=== PATIENT | female | born 1950 | race Caucasian/White ===

== ENCOUNTER 2018-03-07 20:29 | Emergency (ER) | payer MEDICARE, OTHER ==
[2018-03-07 20:56] VITALS: TEMP 97.4
[2018-03-07] MEDS ORDERED: SODIUM CHLORIDE 0.9% 1,000 ML IV STA (21:50)
[2018-03-07] MEDS ORDERED: MORPHINE SULFATE 4 MG/0.8 ML SYRINGE (INJ) IVP STA (21:53)
--- NOTE | 2018-03-07 21:56 | ED ---
Nausea/Vomiting/Diarrhea HPI - General Chief complaint: Nausea/Vomiting/Diarrhea Stated complaint: Blood in stool Time Seen by Provider: 03/07/18 21:36 Source: patient, RN notes reviewed Mode of arrival: wheelchair Limitations: no limitations - History of Present Illness Initial comments: This is a 67-year-old female who presents to the emergency department with chief complaint of bloody diarrhea. Patient states that earlier this afternoon she developed diarrhea. She states that she noticed bright red blood in the toilet and on the toilet paper. She states that soon after she developed abdominal pain below her bellybutton. She describes it as intermittent and burning and occurs for minutes at a time. Patient denies any nausea or vomiting. Denies fevers or chills. Denies shortness of breath or chest pain, flank pain, dysuria, hematuria, increased frequency of urination. Patient denies any previous abdominal surgeries. She denies any significant past medical history except for glaucoma. - Related Data Previous Rx's Medication Instructions Recorded Ciprofloxacin HCl [Cipro] 500 mg PO Q12HR #20 tablet 03/07/18 Allergies Allergy/AdvReac Type Severity Reaction Status Date / Time No Known Allergies Allergy Verified 03/07/18 20:56 Review of Systems ROS Statement: Those systems with pertinent positive or pertinent negative responses have been documented in the HPI. ROS Other: All systems not noted in ROS Statement are negative. 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 Lying comfortably on ED stretcher. and daughter are at bedside. HEENT: Head atraumatic, normocephalic. Pupils are equal, round and reactive to light. Extraocular movements intact. Oropharynx moist without erythema or exudate. Neck: Supple. Normal ROM. Cardiovascular: Regular rate and rhythm. No murmurs, rubs or gallops. Chest symmetrical. Respiratory: Lungs clear to auscultation bilaterally. No wheezes, rales or rhonchi. Normal respiratory effort with no use of accessory muscles. Abdomen: Soft, non-tender, non-distended. No rigidity, rebound or guarding. Normal bowel sounds in all 4 quadrants. No CVA tenderness bilaterally. Musculoskeletal: Normal ROM, no tenderness bilateral upper and lower extremities. Skin: [place], warm and dry without rashes or lesions. Neurological: Alert and oriented x3. CN II-XII grossly intact. Speech is fluent and answers are appropriate. No focal neuro deficits. Psychiatric: Normal mood and affect. No overt signs of depression or anxiety noted. Limitations: no limitations (Initial vital signs: temperature 97.4, pulse 64, respirations 18, blood pressure 138/63, 99% on room air) Rectal exam: Present: normal inspection, normal rectal tone. Absent: hemorrhoids, mass, tenderness Course Vital Signs 03/07/18 20:53 Temperature 97.4 F L Pulse Rate 64 Respiratory 18 Rate Blood Pressure 138/63 O2 Sat by Pulse 99 Oximetry Medical Decision Making - Medical Decision Making This is a 67-year-old female who presented to the emergency department for evaluation of bloody diarrhea that started today. On physical examination, abdomen is soft and non-tender. Vital signs are stable and patient does not appear to be in any acute distress. Stool occult was positive. UA revealed small blood and red blood cells but was otherwise unremarkable. CBC revealed a mildly elevated white count of 11.8 with a left shift of 10.5. CMP was completely unremarkable. Patient given pain medication and fluids in the emergency department and she states that her abdominal pain has resolved. This case was discussed with attending physician, Dr. Ocasio. Recommended obtaining stool cultures and ova and parasite. Patient will be started on Cipro to treat for bacterial causes of bloody diarrhea. Patient's vital signs are stable and she is in no acute distress. She will be discharged home at this time. She is in agreement with plan and voices understanding. All questions were answered. - Lab Data Result diagrams: 03/07/18 22:27 03/07/18 22:27 Lab Results 03/07/18 03/07/18 03/07/18 Range/Units 22:10 22:10 22:27 WBC (3.8-10.6) k/uL RBC (3.80-5.40) m/uL Hgb (11.4-16.0) gm/dL Hct (34.0-46.0) % MCV (80.0-100.0) fL MCH (25.0-35.0) pg MCHC (31.0-37.0) g/dL RDW (11.5-15.5) % Plt Count (150-450) k/uL Neutrophils % % Lymphocytes % % Monocytes % % Eosinophils % % Basophils % % Neutrophils # (1.3-7.7) k/uL Lymphocytes # (1.0-4.8) k/uL Monocytes # (0-1.0) k/uL Eosinophils # (0-0.7) k/uL Basophils # (0-0.2) k/uL Sodium 141 (137-145) mmol/L Potassium 3.9 (3.5-5.1) mmol/L Chloride 105 (98-107) mmol/L Carbon Dioxide 23 (22-30) mmol/L Anion Gap 13 mmol/L BUN 15 (7-17) mg/dL Creatinine 0.70 (0.52-1.04) mg/dL Est GFR (CKD-EPI)AfAm >90 (>60 ml/min/1.73 sqM) Est GFR (CKD-EPI)NonAf 89 (>60 ml/min/1.73 sqM) Glucose 135 H (74-99) mg/dL Calcium 9.4 (8.4-10.2) mg/dL Total Bilirubin 0.5 (0.2-1.3) mg/dL AST 22 (14-36) U/L ALT 22 (9-52) U/L Alkaline Phosphatase 74 (38-126) U/L Total Protein 6.4 (6.3-8.2) g/dL Albumin 4.2 (3.5-5.0) g/dL Amylase 77 (30-110) U/L Lipase 165 (23-300) U/L Urine Color Yellow Urine Appearance Clear (Clear) Urine pH 5.5 (5.0-8.0) Ur Specific [place] 1.021 (1.001-1.035) Urine Protein Trace H (Negative) Urine Glucose (UA) Negative (Negative) Urine Ketones 3+ H (Negative) Urine Blood Small H (Negative) Urine Nitrite Negative (Negative) Urine Bilirubin Negative (Negative) Urine Urobilinogen <2.0 (<2.0) mg/dL Ur Leukocyte Esterase Negative (Negative) Urine RBC 6 H (0-5) /hpf Urine WBC 3 (0-5) /hpf Ur Squamous Epith Cells <1 (0-4) /hpf Urine Mucus Rare H (None) /hpf Stool Occult Blood Positive H (Negative) 03/07/18 Range/Units 22:27 WBC 11.8 H (3.8-10.6) k/uL RBC 4.24 (3.80-5.40) m/uL Hgb 13.3 (11.4-16.0) gm/dL Hct 40.1 (34.0-46.0) % MCV 94.6 (80.0-100.0) fL MCH 31.4 (25.0-35.0) pg MCHC 33.2 (31.0-37.0) g/dL RDW 12.1 (11.5-15.5) % Plt Count 239 (150-450) k/uL Neutrophils % 89 % Lymphocytes % 6 % Monocytes % 3 % Eosinophils % 1 % Basophils % 0 % Neutrophils # 10.5 H (1.3-7.7) k/uL Lymphocytes # 0.7 L (1.0-4.8) k/uL Monocytes # 0.4 (0-1.0) k/uL Eosinophils # 0.1 (0-0.7) k/uL Basophils # 0.0 (0-0.2) k/uL Sodium (137-145) mmol/L Potassium (3.5-5.1) mmol/L Chloride (98-107) mmol/L Carbon Dioxide (22-30) mmol/L Anion Gap mmol/L BUN (7-17) mg/dL Creatinine (0.52-1.04) mg/dL Est GFR (CKD-EPI)AfAm (>60 ml/min/1.73 sqM) Est GFR (CKD-EPI)NonAf (>60 ml/min/1.73 sqM) Glucose (74-99) mg/dL Calcium (8.4-10.2) mg/dL Total Bilirubin (0.2-1.3) mg/dL AST (14-36) U/L ALT (9-52) U/L Alkaline Phosphatase (38-126) U/L Total Protein (6.3-8.2) g/dL Albumin (3.5-5.0) g/dL Amylase (30-110) U/L Lipase (23-300) U/L Urine Color Urine Appearance (Clear) Urine pH (5.0-8.0) Ur Specific [place] (1.001-1.035) Urine Protein (Negative) Urine Glucose (UA) (Negative) Urine Ketones (Negative) Urine Blood (Negative) Urine Nitrite (Negative) Urine Bilirubin (Negative) Urine Urobilinogen (<2.0) mg/dL Ur Leukocyte Esterase (Negative) Urine RBC (0-5) /hpf Urine WBC (0-5) /hpf Ur Squamous Epith Cells (0-4) /hpf Urine Mucus (None) /hpf Stool Occult Blood (Negative) Disposition Clinical Impression: Bloody diarrhea Disposition: HOME SELF-CARE Condition: Good Instructions: Acute Diarrhea (ED) Additional Instructions: Please take medications as prescribed. Please follow up with primary care provider within 1-2 days. Return to emergency department if symptoms should worsen or any concerns arise. Prescriptions: Ciprofloxacin HCl [Cipro] 500 mg PO Q12HR #20 tablet Is patient prescribed a controlled substance at d/c from ED?: No Referrals: Marielle Arredondo MD [Primary Care Provider] - 1-2 days Time of Disposition: 23:10
[2018-03-07 22:22] LABS: Appearance,Urine Clear (Clear); Bilirubin,Urine Negative (Negative); Blood,Urine Small (Negative); Color,Urine Yellow; Glucose,Urine (UA) Negative (Negative); Ketones,Urine 3+ (Negative); Leukocyte Esterase,Urine Negative (Negative); Mucus,Urine Rare /hpf; Nitrite,Urine Negative (Negative); PH, Urine 5.5 (5.0-8.0); Protein,Urine Trace (Negative); RBC,Urine 6 /hpf (0-5); Specific Gravity,Urine 1.021 (1.001-1.035); Squamous Epithelial Cell,Urine <1 /hpf (0-4); Urobilinogen,Urine <2.0 mg/dL (<2.0); WBC,Urine 3 /hpf (0-5)
[2018-03-07 22:41] LABS: Basophils % (A) 0 %; Eosinophils # (A) 0.1 k/uL (0-0.7); Eosinophils % (A) 1 %; HCT 40.1 % (34.0-46.0); HGB 13.3 gm/dL (11.4-16.0); Lymphocytes # (A) 0.7 k/uL (1.0-4.8); Lymphocytes % (A) 6 %; MCH 31.4 pg (25.0-35.0); MCHC 33.2 g/dL (31.0-37.0); MCV 94.6 fL (80.0-100.0); Mean Platelet Volume 7.2; Monocytes # (A) 0.4 k/uL (0-1.0); Monocytes % (A) 3 %; Neutrophils # (A) 10.5 k/uL (1.3-7.7); Neutrophils % (A) 89 %; Platelet Count 239 k/uL (150-450); RBC 4.24 m/uL (3.80-5.40); RDW 12.1 % (11.5-15.5); WBC 11.8 k/uL (3.8-10.6)
--- NOTE | 2018-03-07 22:50 | XR ---
History bloody diarrhea. Comparison none. Technique 2 views. FINDINGS: Bowel gas pattern is normal. There is no sign of intestinal obstruction or pneumoperitoneum. Fecal pa ttern is normal. There is a mild thoracolumbar levoscoliosis. There are no pathologic calcifications over the kidneys. Lung bases are clear. CONCLUSION: Nonacute abdomen.
[2018-03-07 22:54] LABS: ALT 22 U/L (9-52); AST 22 U/L (14-36); Albumin 4.2 g/dL (3.5-5.0); Alkaline Phosphatase 74 U/L (38-126); Amylase 77 U/L (30-110); Anion Gap 13 mmol/L; Blood Urea Nitrogen 15 mg/dL (7-17); Calcium 9.4 mg/dL (8.4-10.2); Carbon Dioxide 23 mmol/L (22-30); Chloride 105 mmol/L (98-107); Glucose 135 mg/dL (74-99); Lipase 165 U/L (23-300); Potassium 3.9 mmol/L (3.5-5.1); Sodium 141 mmol/L (137-145); Total Bilirubin 0.5 mg/dL (0.2-1.3); Total Protein 6.4 g/dL (6.3-8.2)
[2018-03-07] MEDS ORDERED: CIPROFLOXACIN HCL 500 MG TAB PO STA (23:07)
[2018-03-07 23:45] VITALS: BP 122/59; PULSE 67; RESP 16
== END 2018-03-07 23:51 | disposition home or self-care (01) ==
LOC: EC 20:29
DX: R19.7 Diarrhea, unspecified (principal)
CPT/HCPCS: 36415; 80053; 82150; 83690; 85025; 82272; 81001; 74018; 99284; 96374; 96361; J2270

== ENCOUNTER 2018-03-08 08:32 | Inpatient (IN) | payer MEDICARE, OTHER ==
[2018-03-08] MEDS ORDERED: RX INFO: IV CONTRAST WAS GIVEN 1 EACH MISC MISCELLANE PRN (09:09)
[2018-03-08] MEDS ORDERED: SODIUM CHLORIDE 0.9% 1,000 ML IV STA (09:09)
[2018-03-08 09:54] LABS: Basophils % (A) 0 %; Eosinophils # (A) 0.1 k/uL (0-0.7); Eosinophils % (A) 1 %; HGB 13.7 gm/dL (11.4-16.0); Lymphocytes # (A) 0.8 k/uL (1.0-4.8); Lymphocytes % (A) 7 %; MCH 32.1 pg (25.0-35.0); MCHC 33.5 g/dL (31.0-37.0); MCV 95.7 fL (80.0-100.0); Mean Platelet Volume 7.2; Monocytes # (A) 0.4 k/uL (0-1.0); Monocytes % (A) 3 %; Neutrophils % (A) 89 %; Platelet Count 277 k/uL (150-450); RBC 4.28 m/uL (3.80-5.40); WBC 12.4 k/uL (3.8-10.6)
[2018-03-08 10:00] LABS: Appearance,Urine Clear (Clear); Bilirubin,Urine Negative (Negative); Blood,Urine Moderate (Negative); Color,Urine Yellow; Glucose,Urine (UA) Negative (Negative); Ketones,Urine 1+ (Negative); Leukocyte Esterase,Urine Negative (Negative); Mucus,Urine Few /hpf; Nitrite,Urine Negative (Negative); PH, Urine 5.5 (5.0-8.0); Protein,Urine Trace (Negative); RBC,Urine 2 /hpf (0-5); Specific Gravity,Urine 1.019 (1.001-1.035); Squamous Epithelial Cell,Urine 2 /hpf (0-4); Urobilinogen,Urine <2.0 mg/dL (<2.0); WBC,Urine 3 /hpf (0-5)
[2018-03-08 10:02] LABS: Partial Thromboplastin Time 22.1 sec (22.0-30.0); Prothrombin Time 10.2 sec (9.0-12.0)
[2018-03-08 10:08] LABS: ALT 18 U/L (9-52); AST 21 U/L (14-36); Albumin 3.8 g/dL (3.5-5.0); Alkaline Phosphatase 57 U/L (38-126); Amylase 57 U/L (30-110); Anion Gap 12 mmol/L; Blood Urea Nitrogen 10 mg/dL (7-17); Carbon Dioxide 23 mmol/L (22-30); Chloride 105 mmol/L (98-107); Glucose 111 mg/dL (74-99); Lipase 76 U/L (23-300); Potassium 3.7 mmol/L (3.5-5.1); Sodium 140 mmol/L (137-145); Total Bilirubin 0.8 mg/dL (0.2-1.3)
[2018-03-08] MEDS ORDERED: ACETAMINOPHEN TAB 325 MG TAB PO STA (10:20)
--- NOTE | 2018-03-08 10:21 | ED ---
Abdominal Pain HPI - General Chief Complaint: Abdominal Pain Stated Complaint: Abd Pain, Headache Time Seen by Provider: 03/08/18 09:09 Source: patient, RN notes reviewed Mode of arrival: ambulatory Limitations: no limitations - History of Present Illness Initial Comments: This a 67-year-old female presents emergency Department with chief complaint of nausea vomiting diarrhea. She's been having bloody stool since yesterday was seen in the ER and sent home. Symptoms have worsened. She's had all bloody bowel movement with no stool. She does complain of left lower quadrant abdominal pain. Patient reportedly had one episode of hematemesis last night after being discharged from the ER. Patient denies chest pain, fever, chills, shortness breath. She's had no prior abdominal infections no prior colonoscopy. Patient denies any dysuria or hematuria. - Related Data Previous Rx's Medication Instructions Recorded Ciprofloxacin HCl [Cipro] 500 mg PO Q12HR #20 tablet 03/07/18 Allergies Allergy/AdvReac Type Severity Reaction Status Date / Time No Known Allergies Allergy Verified 03/08/18 10:59 Review of Systems ROS Statement: Those systems with pertinent positive or pertinent negative responses have been documented in the HPI. ROS Other: All systems not noted in ROS Statement are negative. 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 Absent: scleral icterus, conjunctival injection, periorbital swelling Respiratory exam: Present: normal lung sounds bilaterally. Absent: respiratory distress, wheezes, rales, rhonchi, stridor Cardiovascular Exam: Present: regular rate, normal rhythm, normal heart sounds. Absent: systolic murmur, diastolic murmur, rubs, gallop, clicks GI/Abdominal exam: Present: soft, tenderness (Mild tenderness to left lower quadrant), normal bowel sounds. Absent: distended, guarding, rebound, rigid Back exam: Absent: CVA tenderness (R), CVA tenderness (L) Skin exam: Present: warm, dry, intact, normal color. Absent: rash Course Vital Signs 03/08/18 08:35 Temperature 99.1 F Pulse Rate 75 Respiratory 18 Rate Blood Pressure 135/68 O2 Sat by Pulse 99 Oximetry Medical Decision Making - Medical Decision Making 67-year-old female presented for rectal bleeding. Patient has moderate colitis extending from the hepatic flexure to sigmoid. Patient will be admitted for GI bleed, colitis. Patient may hydrated IV, given antibiotics. - Lab Data Result diagrams: 03/08/18 09:35 03/08/18 09:35 Lab Results 03/08/18 03/08/18 03/08/18 Range/Units 08:38 09:35 09:35 WBC 12.4 H (3.8-10.6) k/uL RBC 4.28 (3.80-5.40) m/uL Hgb 13.7 (11.4-16.0) gm/dL Hct 41.0 (34.0-46.0) % MCV 95.7 (80.0-100.0) fL MCH 32.1 (25.0-35.0) pg MCHC 33.5 (31.0-37.0) g/dL RDW 12.0 (11.5-15.5) % Plt Count 277 (150-450) k/uL Neutrophils % 89 % Lymphocytes % 7 % Monocytes % 3 % Eosinophils % 1 % Basophils % 0 % Neutrophils # 11.0 H (1.3-7.7) k/uL Lymphocytes # 0.8 L (1.0-4.8) k/uL Monocytes # 0.4 (0-1.0) k/uL Eosinophils # 0.1 (0-0.7) k/uL Basophils # 0.0 (0-0.2) k/uL PT (9.0-12.0) sec INR (<1.2) APTT (22.0-30.0) sec Sodium 140 (137-145) mmol/L Potassium 3.7 (3.5-5.1) mmol/L Chloride 105 (98-107) mmol/L Carbon Dioxide 23 (22-30) mmol/L Anion Gap 12 mmol/L BUN 10 (7-17) mg/dL Creatinine 0.52 (0.52-1.04) mg/dL Est GFR (CKD-EPI)AfAm >90 (>60 ml/min/1.73 sqM) Est GFR (CKD-EPI)NonAf >90 (>60 ml/min/1.73 sqM) Glucose 111 H (74-99) mg/dL Plasma Lactic Acid Edu (0.7-2.0) mmol/L Calcium 9.0 (8.4-10.2) mg/dL Total Bilirubin 0.8 (0.2-1.3) mg/dL AST 21 (14-36) U/L ALT 18 (9-52) U/L Alkaline Phosphatase 57 (38-126) U/L Total Protein 6.0 L (6.3-8.2) g/dL Albumin 3.8 (3.5-5.0) g/dL Amylase 57 (30-110) U/L Lipase 76 (23-300) U/L Urine Color Urine Appearance (Clear) Urine pH (5.0-8.0) Ur Specific [place] (1.001-1.035) Urine Protein (Negative) Urine Glucose (UA) (Negative) Urine Ketones (Negative) Urine Blood (Negative) Urine Nitrite (Negative) Urine Bilirubin (Negative) Urine Urobilinogen (<2.0) mg/dL Ur Leukocyte Esterase (Negative) Urine RBC (0-5) /hpf Urine WBC (0-5) /hpf Ur Squamous Epith Cells (0-4) /hpf Urine Mucus (None) /hpf Stool Occult Blood Positive H (Negative) 03/08/18 03/08/18 03/08/18 Range/Units 09:35 09:35 09:35 WBC (3.8-10.6) k/uL RBC (3.80-5.40) m/uL Hgb (11.4-16.0) gm/dL Hct (34.0-46.0) % MCV (80.0-100.0) fL MCH (25.0-35.0) pg MCHC (31.0-37.0) g/dL RDW (11.5-15.5) % Plt Count (150-450) k/uL Neutrophils % % Lymphocytes % % Monocytes % % Eosinophils % % Basophils % % Neutrophils # (1.3-7.7) k/uL Lymphocytes # (1.0-4.8) k/uL Monocytes # (0-1.0) k/uL Eosinophils # (0-0.7) k/uL Basophils # (0-0.2) k/uL PT 10.2 (9.0-12.0) sec INR 1.0 (<1.2) APTT 22.1 (22.0-30.0) sec Sodium (137-145) mmol/L Potassium (3.5-5.1) mmol/L Chloride (98-107) mmol/L Carbon Dioxide (22-30) mmol/L Anion Gap mmol/L BUN (7-17) mg/dL Creatinine (0.52-1.04) mg/dL Est GFR (CKD-EPI)AfAm (>60 ml/min/1.73 sqM) Est GFR (CKD-EPI)NonAf (>60 ml/min/1.73 sqM) Glucose (74-99) mg/dL Plasma Lactic Acid Edu 1.1 (0.7-2.0) mmol/L Calcium (8.4-10.2) mg/dL Total Bilirubin (0.2-1.3) mg/dL AST (14-36) U/L ALT (9-52) U/L Alkaline Phosphatase (38-126) U/L Total Protein (6.3-8.2) g/dL Albumin (3.5-5.0) g/dL Amylase (30-110) U/L Lipase (23-300) U/L Urine Color Yellow Urine Appearance Clear (Clear) Urine pH 5.5 (5.0-8.0) Ur Specific [place] 1.019 (1.001-1.035) Urine Protein Trace H (Negative) Urine Glucose (UA) Negative (Negative) Urine Ketones 1+ H (Negative) Urine Blood Moderate H (Negative) Urine Nitrite Negative (Negative) Urine Bilirubin Negative (Negative) Urine Urobilinogen <2.0 (<2.0) mg/dL Ur Leukocyte Esterase Negative (Negative) Urine RBC 2 (0-5) /hpf Urine WBC 3 (0-5) /hpf Ur Squamous Epith Cells 2 (0-4) /hpf Urine Mucus Few H (None) /hpf Stool Occult Blood (Negative) Disposition Clinical Impression: Colitis, Lower GI bleed Disposition: ADMITTED IP TO THIS [facility] Condition: Stable Referrals: Marielle Arredondo MD [Primary Care Provider] - 1-2 days
--- NOTE | 2018-03-08 10:36 | CT ---
EXAMINATION TYPE: CT abdomen pelvis w con DATE OF EXAM: 03/08/2018 HISTORY: Mid abdominal pain with nausea, vomiting, and bloody diarrhea. CT DLP: 1042mGycm Automated Exposure Control for Dose Reduction was Utilized. CONTRAST: CT scan of the abdomen and pelvis is performed without oral but with IV Contrast, patient injected wi th 100 mL of Isovue 300. COMPARISON: None. FINDINGS: LUNG BASES: Dependent atelectasis is present in both bases. LIVER/GB: No significant abnormality is appreciated. PANCREAS: No significant abnormality is seen. SPLEEN: No significant abnormality is seen. ADRENALS: No significant abnormality is seen. KIDNEYS: No significant abnormality is seen. There is moderate amount of free fluid in pelvis near ax ial image 74 extending into right greater than left bilateral adnexa. BOWEL: A small hiatal hernia is seen. There is moderate wall thickening of the left colon from the sp lenic flexure through the proximal sigmoid colon. There is mild to moderate ill-defined fluid and fat stranding along the colon with small amount of left infracolic fluid seen. Some vasa engorgement is present. There is no pneumoperitoneum identified. No well-formed thick-walled fluid collection or ab scess is noted. UTERUS/ADNEXA: Slightly retroverted uterus is seen. LYMPH NODES: No greater than 1cm abdominal or pelvic lymph nodes are appreciated. OSSEOUS STRUCTURES: Slight scoliotic curvature is seen. Spine is straightened. There is moderate to severe axial joint space loss in both hips with mild acetabular spurring, there is prominent subchondral cyst in the right femoral head. OTHER: No significant additional abnormality is seen. IMPRESSION: 1. There is fairly moderate acute left-sided colitis.
[2018-03-08] MEDS ORDERED: NALOXONE 0.4 MG/ML 1 ML VIAL IV PRN (11:02)
[2018-03-08] MEDS ORDERED: metroNIDAZOLE-NS PMX 500 MG in SALINE 1 100ML.BAG IVPB STA (11:03)
[2018-03-08] MEDS ORDERED: LEVOFLOXACIN 750MG-D5W PMX 750 MG in DEXTROSE/WATER 1 150ML.BAG IVPB STA (11:03)
[2018-03-08] MEDS ORDERED: MORPHINE SULFATE 4 MG/0.8 ML SYRINGE (INJ) IVP ONE (11:11)
[2018-03-08] MEDS ORDERED: ONDANSETRON 4 MG/2 ML VIAL IVP STA (11:11)
[2018-03-08] MEDS: ACETAMINOPHEN TAB 325 MG TAB PO PRN ×2 (15:44→21:48)
[2018-03-08] MEDS: SODIUM CHLORIDE 0.9% 1,000 ML IV SCH (15:47)
[2018-03-08] MEDS: metroNIDAZOLE-NS PMX 500 MG in SALINE 1 100ML.BAG IVPB SCH (21:51)
[2018-03-09] MEDS: FRESHKOTE BOTH EYES SCH ×4 (01:24→20:44)
[2018-03-09] MEDS: SIMBRINZA BOTH EYES SCH ×3 (01:26→20:47)
[2018-03-09] MEDS: SODIUM CHLORIDE 0.9% 1,000 ML IV SCH ×5 (01:35→18:05)
[2018-03-09] MEDS: ACETAMINOPHEN TAB 325 MG TAB PO PRN ×2 (05:44→18:24)
[2018-03-09] MEDS: metroNIDAZOLE-NS PMX 500 MG in SALINE 1 100ML.BAG IVPB SCH ×3 (05:44→22:00)
[2018-03-09] MEDS: ONDANSETRON 4 MG/2 ML VIAL IVP PRN ×2 (05:44→18:03)
[2018-03-09 06:53] LABS: Basophils % (A) 0 %; Eosinophils # (A) 0.1 k/uL (0-0.7); Eosinophils % (A) 1 %; HCT 37.4 % (34.0-46.0); HGB 12.6 gm/dL (11.4-16.0); Lymphocytes # (A) 1.3 k/uL (1.0-4.8); Lymphocytes % (A) 11 %; MCH 32.4 pg (25.0-35.0); MCHC 33.7 g/dL (31.0-37.0); MCV 96.1 fL (80.0-100.0); Mean Platelet Volume 7.2; Monocytes # (A) 0.4 k/uL (0-1.0); Monocytes % (A) 3 %; Neutrophils # (A) 10.5 k/uL (1.3-7.7); Neutrophils % (A) 84 %; Platelet Count 260 k/uL (150-450); RDW 12.1 % (11.5-15.5); WBC 12.5 k/uL (3.8-10.6)
[2018-03-09] MEDS ORDERED: LUMIGAN BOTH EYES SCH (09:00)
--- NOTE | 2018-03-09 10:17 | P.CONS ---
History of Present Illness - Reason for Consult Consult date: 03/09/18 Abdominal pain GI bleed Requesting physician: Danny Lancaster - History of Present Illness 67-year-old female patient Dr. Arredondo with a past medical history glaucoma, vertigo. Patient developed severe crampy lower abdominal pain on Thursday afternoon followed by multiple episodes of bloody maroon colored bowel movements. No history of GI bleed. She was evaluated in the emergency room and discharged on Thursday with antibiotics. She had a large emesis in the car and noticed the next day but it appeared bloody in nature. She presented herself to the hospital yesterday for further evaluation secondary to ongoing lower abdominal pain and blood tinged bowel movements. She's had no recurrence of emesis. Her last bowel movement was late Thursday night/early Thursday morning. Hemoglobin on 03/07/2018 was 13.3 presently 12.6. White count 12.5. Platelet 260. INR 1.0. BUN 10. Creatinine 0.5. C. diff negative. Stool occult blood positive. Receiving intravenous antibiotics. No changes in weight or appetite. No sick contacts. No recent travels. No changes in medications. No changes in diet. No NSAIDs aspirin or antiplatelet medications. No alcohol. No history of EGD colonoscopy. CT abdomen and pelvis reported moderate wall thickening of the left colon from the splenic flexure to the proximal sigmoid. Mild to moderate ill-defined fluid and fat stranding along the colon with small amount of left infracolic fluid. No pneumoperitoneum. No abscess. Review of Systems RConstitutional: Denies fever, chills, sweats, weight gain, or loss. HEENT: Negative for migraines, blurred vision or loss, earaches, drainage, tinnitus, oral mucosal lesions, dysphagia, or odynophagia. History of vertical and glaucoma. CARDIAC: Negative for chest pain, arrhythmias, or palpitation. RESPIRATORY: Negative for shortness of breath, hemoptysis, cough, or sputum production. GI: See HPI for pertinent findings. : Negative for hematuria, urgency, frequency, polyuria, or dysuria. GYNc: Negative vaginal discharge. MUSCULOSKELETAL: Negative for muscle aches, swelling, arthritis, and arthralgias. NEUROLOGIC: Negative for stroke or TIA. ENDOCRINE: Negative for thyroid problems. SKIN: Negative for rash or itching. PSYCHIATRIC: Negative history for depression and anxietymale Past Medical History Past Medical History: Eye Disorder Additional Past Medical History / Comment(s): Bilateral glaucoma, past vertigo, headaches occasionally. History of Any Multi-Drug Resistant Organisms: None Reported Past Surgical History: No Surgical Hx Reported Additional Past Surgical History / Comment(s): L eye cataract removed with lens implants. Additional Past Anesthesia/Blood Transfusion Reaction / Comm: Pt has never received general anesthesia. Smoking Status: Never smoker - Past Family History Mother Family Medical History: CVA/TIA Additional Family Medical History / Comment(s): Mother of a CVA at the age of 76yrs Father Family Medical History: Myocardial Infarction ([place]) Additional Family Medical History / Comment(s): Father of a [place] at the age of 72 yrs. Medications and Allergies Home Medications Medication Instructions Recorded Confirmed Type Ciprofloxacin HCl [Cipro] 500 mg PO Q12HR #20 tablet 03/07/18 03/08/18 Rx Bimatoprost [[place] .01% Ophth 1 drop BOTH EYES DAILY 03/08/18 03/08/18 History Soln] Brinzolamide/Brimonidine Tart 1 drop BOTH EYES QAM 03/08/18 03/08/18 History [Simbrinza 1%-0.2% Eye Drops] Brinzolamide/Brimonidine Tart 2 drops BOTH EYES HS 03/08/18 03/08/18 History [Simbrinza 1%-0.2% Eye Drops] Eye Lubricant Combination No.1 1 drop BOTH EYES TID 03/08/18 03/08/18 History [Freshkote] Allergies Allergy/AdvReac Type Severity Reaction Status Date / Time No Known Allergies Allergy Verified 03/08/18 10:59 Physical Exam Vitals: Vital Signs Temp Pulse Pulse Resp BP BP Pulse Ox 03/09/18 07:00 98.4 F 68 18 133/78 97 03/08/18 23:00 99.7 F H 63 18 106/52 97 03/08/18 15:30 97.4 F L 76 16 128/70 95 03/08/18 15:17 99.1 F 73 18 129/63 97 03/08/18 15:09 73 18 129/63 97 03/08/18 14:27 74 18 127/60 97 03/08/18 12:12 69 18 131/65 96 Intake and Output 03/08/18 03/09/18 03/09/18 22:59 06:59 14:59 Intake Total 300 250 200 Balance 300 250 200 Intake: Oral 300 250 200 Other: # Voids 1 1 # Bowel Movements 0 0 General appearance: The patient is alert, oriented, in no acute distress. HET: Head is normocephalic and atraumatic. Pupils are equal and reactive. Oropharynx is clear without lesions. Neck: Supple without lymphadenopathy. Trachea midline. Heart: S1 S2. Regular rate and rhythm. Lungs: No crackles or wheezes are heard. Abdomen: Soft, mild tenderness the bilateral lower abdomen greater than left and right, nondistended with bowel sounds. No peritoneal signs. No palpable organomegaly or masses. Extremities: Normal skin color and turgor. No cyanosis, rash, ulceration, clubbing, or edema. Radial and pedal pulses are 2/4 bilaterally. Neurological: No focal deficits. Strength and sensation are grossly intact. Results CBC & Chem 7: 03/11/18 08:41 03/11/18 08:41 Labs: Abnormal Lab Results - Last 24 Hours (Table) 03/08/18 03/08/18 03/09/18 Range/Units 08:38 09:35 06:43 WBC 12.5 H (3.8-10.6) k/uL Neutrophils # 10.5 H (1.3-7.7) k/uL Glucose 111 H (74-99) mg/dL Total Protein 6.0 L (6.3-8.2) g/dL Stool Occult Blood Positive H (Negative) CT scan - abdomen: report reviewed (Dr. Dumont) Assessment and Plan (1) Colitis Narrative/Plan: Suspect ischemic colitis with CT abdomen reporting colitis splenic flexure to mid sigmoid Current Visit: Yes Status: Acute Code(s): K52.9 - NONINFECTIVE GASTROENTERITIS AND COLITIS, UNSPECIFIED SNOMED Code(s): 72247731 (2) Hematemesis Narrative/Plan: Possible jarrell sims Current Visit: Yes Status: Acute Code(s): K92.0 - HEMATEMESIS SNOMED Code( s): 9969836 (3) Hematochezia Current Visit: Yes Status: Acute Code(s): K92.1 - MELENA SNOMED Code(s): 131361756 (4) GI bleeding Current Visit: Yes Status: Acute Code(s): K92.2 - GASTROINTESTINAL HEMORRHAGE, UNSPECIFIED SNOMED Code(s): 46754907 Plan: 1. Increase IV fluids 125 mL an hour. CBC in a.m. Pain control/narcotics per medical staff evaluation. Advised Tylenol based medications avoid NSAIDs. 2. Protonix 40 mg IV daily. 3. Clear liquid diet. 4. EGD colonoscopy scheduled tomorrow. 5. Nothing by mouth after clear liquid breakfast in a.m. The mission systems engineer has discussed the risks, benefits and alternative therapies for the above-mentioned procedure and for both sedation/analgesia as well as necessary blood product administration, if indicated, as they pertain to this patient. The patient has indicated understanding and acceptance of the risks and procedures discussed. Thank you for this kind referral and the opportunity to participate in the care of your patient. This consultation was discussed with Dr. Dumont. The impression and plan of care have been directed as dictated.
[2018-03-09] MEDS ORDERED: ACETAMINOPHEN TAB 500 MG TAB PO PRN (10:46)
--- NOTE | 2018-03-09 11:53 | P.HPIM ---
History of Present Illness H&P Date: 03/09/18 Chief Complaint: Abdominal pain This is a 67-year-old female with no significant past medical history who presented to the emergency room with abdominal discomfort and blood in her stool. Patient said that her problem originally started on Thursday where she was evaluated in the emergency room and was discharged home and subsequently her pain continues to get worse. She was initially having maroon colored stool and subsequently was more bright red blood in her stool. Patient said that she is also having abdominal pain that is diffuse mostly in the lower abdomen. She had one episode of vomiting with bright red blood noted as well. Patient presented to the emergency room and was found to be hemodynamically stable. Hemoglobin dropped by 1 g but remained within acceptable range. She is currently admitted to the hospital. Computed tomography scan of the abdomen showed left colitis. She is currently on IV antibiotics. Review of Systems Review of system: 14 points review of systems were obtained and were negative except to what were mentioned in the HPI. Past Medical History Past Medical History: Eye Disorder Additional Past Medical History / Comment(s): Bilateral glaucoma, past vertigo, headaches occasionally. History of Any Multi-Drug Resistant Organisms: None Reported Past Surgical History: No Surgical Hx Reported Additional Past Surgical History / Comment(s): L eye cataract removed with lens implants. Additional Past Anesthesia/Blood Transfusion Reaction / Comment(s): Pt has never received general anesthesia. Smoking Status: Never smoker - Past Family History Mother Family Medical History: CVA/TIA Additional Family Medical History / Comment(s): Mother of a CVA at the age of 76yrs Father Family Medical History: Myocardial Infarction (HI) Additional Family Medical History / Comment(s): Father of a HI at the age of 72 yrs. Medications and Allergies Home Medications Medication Instructions Recorded Confirmed Type Ciprofloxacin HCl [Cipro] 500 mg PO Q12HR #20 tablet 03/07/18 03/08/18 Rx Bimatoprost [Lumigan .01% Ophth 1 drop BOTH EYES DAILY 03/08/18 03/08/18 History Soln] Brinzolamide/Brimonidine Tart 1 drop BOTH EYES QAM 03/08/18 03/08/18 History [Simbrinza 1%-0.2% Eye Drops] Brinzolamide/Brimonidine Tart 2 drops BOTH EYES HS 03/08/18 03/08/18 History [Simbrinza 1%-0.2% Eye Drops] Eye Lubricant Combination No.1 1 drop BOTH EYES TID 03/08/18 03/08/18 History [Freshkote] Allergies Allergy/AdvReac Type Severity Reaction Status Date / Time No Known Allergies Allergy Verified 03/08/18 10:59 Physical Exam Vitals: Vital Signs Temp Pulse Pulse Resp BP BP Pulse Ox 03/09/18 07:00 98.4 F 68 18 133/78 97 03/08/18 23:00 99.7 F H 63 18 106/52 97 03/08/18 15:30 97.4 F L 76 16 128/70 95 03/08/18 15:17 99.1 F 73 18 129/63 97 03/08/18 15:09 73 18 129/63 97 03/08/18 14:27 74 18 127/60 97 03/08/18 12:12 69 18 131/65 96 Intake and Output 03/08/18 03/09/18 03/09/18 22:59 06:59 14:59 Intake Total 300 250 200 Balance 300 250 200 Intake: Oral 300 250 200 Other: # Voids 1 1 # Bowel Movements 0 0 General: The patient is awake and alert, in no distress Eye: there is normal conjunctiva bilaterally. Neck: The neck is supple, there is no JVD. Cardiovascular: Normal S1-S2, no S3-S4, no murmurs. Respiratory: Lungs clear to auscultation bilaterally Gastrointestinal: Abdomen is soft, there is moderate tenderness to palpation worse in the lower abdomen Musculoskeletal: There is no pedal edema. Neurological:. Speech is normal. Skin: Skin is warm and dry Results CBC & Chem 7: 03/09/18 06:43 03/08/18 09:35 Labs: Abnormal Lab Results - Last 24 Hours (Table) 03/09/18 Range/Units 06:43 WBC 12.5 H (3.8-10.6) k/uL Neutrophils # 10.5 H (1.3-7.7) k/uL Thrombosis Risk Factor Assmnt - Choose All That Apply Any of the Below Risk Factors Present?: Yes Other Risk Factors: Yes Each Risk Factor Represents 2 Points: Age 61-74 years Other congenital or acquired thrombophilia - If yes, enter type in comment: No Thrombosis Risk Factor Assessment Total Risk Factor Score: 2 Thrombosis Risk Factor Assessment Level: Low Risk Assessment and Plan Assessment: 1. Acute colitis involving the descending colon and proximal sigmoid. Probably infectious. May be ischemic in nature. Unfortunately no lactic acid drawn on presentation. 2. Upper and lower GI bleed 3. Blood loss anemia Patient was seen and evaluated by GI. Plan for EGD and colonoscopy in the morning. Continue IV fluid hydration. Antibiotic with Levaquin and Flagyl. Plan to finish 10 days course stop date 03/18/18
[2018-03-09] MEDS ORDERED: KETOROLAC 30 MG/ML 1 ML VIAL IVP STA (12:54)
[2018-03-09] MEDS ORDERED: MORPHINE SULFATE 4 MG/ML SYRINGE IVP PRN (12:54)
[2018-03-09] MEDS: PANTOPRAZOLE 40 MG/10 ML VIAL IVP SCH (13:07)
[2018-03-09] MEDS: LEVOFLOXACIN 500MG-D5W PMX 500 MG in DEXTROSE/WATER 1 100ML.BAG IVPB SCH (13:08)
[2018-03-09] MEDS ORDERED: LEVOFLOXACIN 500MG-D5W PMX 500 MG in DEXTROSE/WATER 1 100ML.BAG IVPB SCH (15:00)
[2018-03-09] MEDS ORDERED: PEG 3350-NA SULF,BICARB,CL/KCL 4,000 ML BOTTLE PO ONE (16:00)
[2018-03-09] MEDS ORDERED: BISACODYL 5 MG TABLET.DR PO STA ×2 (21:07→21:09)
[2018-03-09] MEDS: PROCHLORPERAZINE 5 MG TAB PO PRN (23:15)
[2018-03-09] MEDS: LORATADINE 10 MG TAB PO PRN (23:15)
[2018-03-10] MEDS: SODIUM CHLORIDE 0.9% 1,000 ML IV SCH ×3 (05:18→16:17)
[2018-03-10] MEDS: metroNIDAZOLE-NS PMX 500 MG in SALINE 1 100ML.BAG IVPB SCH ×3 (05:18→20:35)
[2018-03-10] MEDS ORDERED: MORPHINE ORAL SOLN 10 MG/5 ML CUP PO PRN (08:07)
[2018-03-10 08:16] LABS: Basophils % (A) 0 %; Eosinophils # (A) 0.1 k/uL (0-0.7); Eosinophils % (A) 1 %; HCT 36.7 % (34.0-46.0); HGB 12.2 gm/dL (11.4-16.0); Lymphocytes # (A) 1.5 k/uL (1.0-4.8); Lymphocytes % (A) 13 %; MCH 31.2 pg (25.0-35.0); MCHC 33.2 g/dL (31.0-37.0); MCV 93.9 fL (80.0-100.0); Mean Platelet Volume 7.6; Monocytes # (A) 0.5 k/uL (0-1.0); Monocytes % (A) 4 %; Neutrophils # (A) 9.6 k/uL (1.3-7.7); Neutrophils % (A) 82 %; Platelet Count 271 k/uL (150-450); RBC 3.91 m/uL (3.80-5.40); RDW 12.1 % (11.5-15.5); WBC 11.8 k/uL (3.8-10.6)
[2018-03-10] MEDS: METOCLOPRAMIDE 5 MG/ML 2 ML VIAL IVP PRN ×2 (08:19→16:13)
[2018-03-10 08:23] LABS: Anion Gap 15 mmol/L; Blood Urea Nitrogen 4 mg/dL (7-17); Calcium 8.6 mg/dL (8.4-10.2); Carbon Dioxide 22 mmol/L (22-30); Chloride 104 mmol/L (98-107); Glucose 72 mg/dL (74-99); Sodium 141 mmol/L (137-145)
[2018-03-10] MEDS: ACETAMINOPHEN IV (For NPO) 1,000 MG in EMPTY BAG 1 BAG IVPB SCH ×4 (08:24→23:23)
[2018-03-10] MEDS: SIMBRINZA BOTH EYES SCH ×3 (08:28→20:37)
[2018-03-10] MEDS: FRESHKOTE BOTH EYES SCH ×3 (08:28→20:36)
[2018-03-10] MEDS: PANTOPRAZOLE 40 MG/10 ML VIAL IVP SCH (08:31)
--- NOTE | 2018-03-10 09:17 | P.PN ---
Subjective Progress Note Date: 03/10/18 Principal diagnosis: Rectal bleeding colitis 67-year-old female admitted with suspected ischemic colitis. No bloody bowel movements for more than 24 hours but still reports moderate abdominal pain. This morning she reports increased bloatedness. Afebrile. Increased nausea unable to tolerate bowel prep. White count 11.8. Potassium 3.0. BUN 4. Creatinine 0.5. Lactic acid 0.9. Objective - Vital Signs Vital signs: Vital Signs Temp 98.7 F 03/10/18 05:55 Pulse 73 03/10/18 05:55 Resp 16 03/10/18 05:55 BP 139/71 03/10/18 05:55 Pulse Ox 97 03/10/18 05:55 Intake & Output 03/09/18 03/10/18 03/10/18 18:59 06:59 18:59 Intake Total 200 Balance 200 Intake: Oral 200 Other: # Voids 1 1 - Exam General appearance: The patient is alert, oriented, in no acute distress. HET: Head is normocephalic and atraumatic. Pupils are equal and reactive. Oropharynx is clear without lesions. Neck: Supple without lymphadenopathy. Trachea midline. Heart: S1 S2. Regular rate and rhythm. Lungs: No crackles or wheezes are heard. Abdomen: Soft, tenderness across the lower abdomen greater than left and right, nondistended with bowel sounds. No peritoneal signs. No palpable organomegaly or masses. Extremities: Normal skin color and turgor. No cyanosis, rash, ulceration, clubbing, or edema. Radial and pedal pulses are 2/4 bilaterally. Neurological: No focal deficits. Strength and sensation are grossly intact. - Labs CBC & Chem 7: 03/10/18 07:59 03/10/18 07:59 Labs: Abnormal Lab Results - Last 24 Hours (Table) 03/10/18 03/10/18 Range/Units 07:59 07:59 WBC 11.8 H (3.8-10.6) k/uL Neutrophils # 9.6 H (1.3-7.7) k/uL Potassium 3.0 L* (3.5-5.1) mmol/L BUN 4 L (7-17) mg/dL Creatinine 0.51 L (0.52-1.04) mg/dL Glucose 72 L (74-99) mg/dL Assessment and Plan (1) Colitis Narrative/Plan: Suspect ischemic colitis with CT abdomen reporting colitis splenic flexure to mid sigmoid. Unable to tolerate bowel prep secondary to nausea and abdominal bloatedness no further bloody bowel movement since admission possible underlying ileus. Current Visit: Yes Status: Acute Code(s): K52.9 - NONINFECTIVE GASTROENTERITIS AND COLITIS, UNSPECIFIED SNOMED Code(s): 80741919 (2) Hematemesis Current Visit: Yes Status: Acute Code(s): K92.0 - HEMATEMESIS SNOMED Code( s): 8376640 (3) Hematochezia Current Visit: Yes Status: Acute Code(s): K92.1 - MELENA SNOMED Code(s): 011928877 (4) GI bleeding Current Visit: Yes Status: Acute Code(s): K92.2 - GASTROINTESTINAL HEMORRHAGE, UNSPECIFIED SNOMED Code(s): 79044367 Plan: 1. Patient is unable to tolerate bowel prep today secondary to persistent nausea and abdominal discomfort and bloatedness. EGD colonoscopy canceled today. Possible underlying ileus. 2. Will obtain abdominal x-rays if unremarkable will reschedule EGD colonoscopy for tomorrow and provide Dulcolax tablets this afternoon and make adjustments on bowel prep. Will add Reglan 10 mg IV every 6 hours as needed for nausea. Continue CBC monitoring. 3. Recommend surgical consultation if abdominal pain does not improve. Assessment and plan of care discussed with Dr. Dumont
--- NOTE | 2018-03-10 09:52 | XR ---
EXAMINATION TYPE: XR abdomen complete w decub DATE OF EXAM: 03/10/2018 HISTORY: Pain. Technique: 4 views of the abdomen are submitted. Comparison: None. Findings: There is no convincing evidence of pneumoperitoneum. The Bowel gas pattern is nonspecific and nonobstructive. No sizable air-fluid levels are seen. No mass effects are noted. No renal calcifications are identified. IMPRESSION: 1. Nonspecific nonobstructive bowel gas pattern
[2018-03-10] MEDS: POTASSIUM CHLORIDE 10 MEQ in WATER FOR INJECTION 1 100ML.BAG IVPB SCH ×2 (10:27→11:51)
[2018-03-10] MEDS: ONDANSETRON 4 MG/2 ML VIAL IVP PRN ×3 (10:41→19:06)
[2018-03-10] MEDS ORDERED: BISACODYL 5 MG TABLET.DR PO STA (11:29)
--- NOTE | 2018-03-10 12:21 | P.PN ---
Subjective Progress Note Date: 03/10/18 Patient is feeling poorly today. She was very nauseous last night and vomited once. She is still having abdominal pain that she describes as generalized. Her abdomen is soft on exam. She was unable to tolerate the colonoscopy prep last night. Objective - Vital Signs Vital signs: Vital Signs Temp 98.7 F 03/10/18 05:55 Pulse 73 03/10/18 05:55 Resp 16 03/10/18 05:55 BP 139/71 03/10/18 05:55 Pulse Ox 97 03/10/18 05:55 Intake & Output 03/09/18 03/10/18 03/10/18 18:59 06:59 18:59 Intake Total 200 Balance 200 Intake: Oral 200 Other: # Voids 1 1 - Exam General: The patient is awake and alert, in no distress Eye: there is normal conjunctiva bilaterally. Neck: The neck is supple, there is no JVD. Cardiovascular: Normal S1-S2, no S3-S4, no murmurs. Respiratory: Lungs clear to auscultation bilaterally Gastrointestinal: Abdomen is soft, nontender Musculoskeletal: There is no pedal edema. Neurological:. Speech is normal. Skin: Skin is warm and dry - Labs CBC & Chem 7: 03/10/18 07:59 03/10/18 07:59 Labs: Abnormal Lab Results - Last 24 Hours (Table) 03/10/18 03/10/18 Range/Units 07:59 07:59 WBC 11.8 H (3.8-10.6) k/uL Neutrophils # 9.6 H (1.3-7.7) k/uL Potassium 3.0 L* (3.5-5.1) mmol/L BUN 4 L (7-17) mg/dL Creatinine 0.51 L (0.52-1.04) mg/dL Glucose 72 L (74-99) mg/dL Assessment and Plan Assessment: 1. Acute colitis involving the descending colon and proximal sigmoid. Probably infectious. May be ischemic in nature. Unfortunately no lactic acid drawn on presentation. 2. Upper and lower GI bleed: Awaiting endoscopy evaluation. Hemoglobin relatively stable. 3. Blood loss anemia Patient was seen and evaluated by GI. Plan for EGD and colonoscopy in the morning. Continue IV fluid hydration. Antibiotic with Levaquin and Flagyl. Plan to finish 10 days course stop date 03/18/18
[2018-03-10] MEDS ORDERED: MAGNESIUM CITRATE 296 ML BOTTLE PO ONE (14:00)
[2018-03-10] MEDS: LEVOFLOXACIN 500MG-D5W PMX 500 MG in DEXTROSE/WATER 1 100ML.BAG IVPB SCH (14:18)
[2018-03-10] MEDS: LORATADINE 10 MG TAB PO PRN (17:06)
[2018-03-10] MEDS ORDERED: POLYETHYLENE GLYCOL LYTES SOLN 4,000 ML SOLN.RECON PO ONE (18:00)
[2018-03-10] MEDS: PROCHLORPERAZINE 5 MG TAB PO PRN (20:35)
[2018-03-10] MEDS: LUMIGAN BOTH EYES SCH (20:36)
[2018-03-11] MEDS: SODIUM CHLORIDE 0.9% 1,000 ML IV SCH ×3 (02:28→20:21)
[2018-03-11] MEDS: metroNIDAZOLE-NS PMX 500 MG in SALINE 1 100ML.BAG IVPB SCH ×3 (06:22→21:13)
[2018-03-11] MEDS ORDERED: BISACODYL 5 MG TABLET.DR PO ONE (08:00)
[2018-03-11] MEDS: PANTOPRAZOLE 40 MG/10 ML VIAL IVP SCH (08:00)
[2018-03-11] MEDS: SIMBRINZA BOTH EYES SCH ×3 (08:03→20:25)
[2018-03-11] MEDS: FRESHKOTE BOTH EYES SCH ×3 (08:03→20:23)
[2018-03-11] MEDS ORDERED: POLYETHYLENE GLYCOL 3350 17 GM POWD.PACK PO ONE ×2 (09:00→10:00)
[2018-03-11 09:47] LABS: Basophils % (A) 0 %; Eosinophils # (A) 0.1 k/uL (0-0.7); Eosinophils % (A) 1 %; HCT 37.7 % (34.0-46.0); HGB 12.6 gm/dL (11.4-16.0); Lymphocytes # (A) 1.4 k/uL (1.0-4.8); Lymphocytes % (A) 14 %; MCH 31.1 pg (25.0-35.0); MCHC 33.3 g/dL (31.0-37.0); MCV 93.4 fL (80.0-100.0); Mean Platelet Volume 7.6; Monocytes # (A) 0.5 k/uL (0-1.0); Monocytes % (A) 5 %; Neutrophils # (A) 7.8 k/uL (1.3-7.7); Neutrophils % (A) 79 %; Platelet Count 295 k/uL (150-450); RBC 4.04 m/uL (3.80-5.40); WBC 9.9 k/uL (3.8-10.6)
[2018-03-11 10:10] LABS: Anion Gap 12 mmol/L; Blood Urea Nitrogen 3 mg/dL (7-17); Calcium 8.7 mg/dL (8.4-10.2); Carbon Dioxide 27 mmol/L (22-30); Chloride 102 mmol/L (98-107); Glucose 103 mg/dL (74-99); Magnesium 1.9 mg/dL (1.6-2.3); Potassium 3.2 mmol/L (3.5-5.1); Sodium 141 mmol/L (137-145)
[2018-03-11] MEDS: LEVOFLOXACIN 500MG-D5W PMX 500 MG in DEXTROSE/WATER 1 100ML.BAG IVPB SCH (11:13)
[2018-03-11 11:28] VITALS: BMI 20.1
[2018-03-11] MEDS: POTASSIUM CHLORIDE 10 MEQ in WATER FOR INJECTION 1 100ML.BAG IVPB SCH ×2 (12:22→13:59)
--- NOTE | 2018-03-11 12:45 | P.PN ---
Subjective Patient is feeling a lot better today. No nausea or vomiting. Abdominal pain is improved significantly. Objective - Vital Signs Vital signs: Vital Signs Temp 97.8 F 03/11/18 08:00 Pulse 73 03/11/18 08:00 Resp 17 03/11/18 08:00 BP 151/76 03/11/18 08:00 Pulse Ox 94 L 03/11/18 08:00 Intake & Output 03/10/18 03/11/18 03/11/18 18:59 06:59 18:59 Intake Total 1540 Balance 1540 Weight 56.699 kg 56.699 kg Intake: Intake, IV Titration 1300 Amount ACETAMINOPHEN IV (For NPO 100 ) 1,000 mg In Empty Bag 1 bag @ 400 mls/hr IVPB Q6HR BARB Rx#:[id number] Levofloxacin 500Mg-D5w 100 Pmx 500 mg In Dextrose/ Water 1 100ml.bag @ 100 mls/hr IVPB Q24H BARB Rx#: [id number] Potassium Chloride 10 meq 200 In Water For Injection 1 100ml.bag @ 100 mls/hr IVPB Q1H BARB Rx#: [id number] Sodium Chloride 0.9% 1, 800 000 ml @ 125 mls/hr IV . Q8H BARB Rx#:[id number] metroNIDAZOLE-NS PMX 500 100 mg In Saline 1 100ml.bag @ 100 mls/hr IVPB Q8H BARB Rx#:[id number] Oral 240 Other: Voiding Method Bedside Commode Bedside Commode # Voids 1 2 # Bowel Movements 1 - Exam General: The patient is awake and alert, in no distress Eye: there is normal conjunctiva bilaterally. Neck: The neck is supple, there is no JVD. Cardiovascular: Normal S1-S2, no S3-S4, no murmurs. Respiratory: Lungs clear to auscultation bilaterally Gastrointestinal: Abdomen is soft, nontender Musculoskeletal: There is no pedal edema. Neurological:. Speech is normal. Skin: Skin is warm and dry - Labs CBC & Chem 7: 03/11/18 08:41 03/11/18 08:41 Labs: Abnormal Lab Results - Last 24 Hours (Table) 03/11/18 03/11/18 Range/Units 08:41 08:41 Neutrophils # 7.8 H (1.3-7.7) k/uL Potassium 3.2 L (3.5-5.1) mmol/L BUN 3 L (7-17) mg/dL Glucose 103 H (74-99) mg/dL Assessment and Plan Assessment: 1. Acute colitis involving the descending colon and proximal sigmoid. Probably infectious. May be ischemic in nature. Unfortunately no lactic acid drawn on presentation. 2. Upper and lower GI bleed: Awaiting endoscopy evaluation. Hemoglobin relatively stable. 3. Blood loss anemia Patient was seen and evaluated by GI. Plan for EGD and colonoscopy today. Continue IV fluid hydration. Antibiotic with Levaquin and Flagyl. Plan to finish 10 days course stop date 03/18/18 Possible discharge home tomorrow
[2018-03-11] MEDS: ONDANSETRON 4 MG/2 ML VIAL IVP PRN (13:17)
[2018-03-11] MEDS ORDERED: LIDOCAINE 1% INJ 10MG/ML (20 ML MDV) ONE (14:23)
[2018-03-11] MEDS ORDERED: IV FLUID CONTINUATION 1,000 ML IV ONE (14:23)
[2018-03-11] MEDS ORDERED: PROPOFOL 10 MG/ML 20 ML VIAL IV ONE (14:23)
[2018-03-11] MEDS ORDERED: LACTATED RINGERS 1,000 ML IV SCH (15:03)
--- NOTE | 2018-03-11 15:14 | P.PCN ---
Date of Procedure: 03/11/18 Procedure(s) Performed: Procedures: 1. Esophagogastroduodenoscopy and biopsy. 2. Colonoscopy and biopsy. Preoperative diagnosis: GI bleeding. Postoperative diagnosis: 1. Sliding hiatal hernia with no obvious esophagitis or complicated reflux disease. 2. Antral gastritis with no ulcers or gastric outlet obstruction or active bleeding. 3. Mild sigmoid diverticulosis with no evidence of acute diverticulitis or strictures. 4. Resolving segmental colitis involving the descending colon and proximal sigmoid consistent with ischemic or self-limited colitis with no evidence of bleeding at the time of this exam. 5. No obvious polyps, cancer or other pathology noted on the colonoscopy. Preparation: GoLYTELY prep. Sedation: Was provided by anesthesia. Brief clinical history: The patient is a 67-year-old female with a past medical history glaucoma, vertigo. Patient developed severe crampy lower abdominal pain on March 07, 2018 followed by multiple episodes of bloody maroon colored bowel movements. No history of GI bleed. She was evaluated in the emergency room and discharged on antibiotics. She had a large emesis in the car and noticed the next day that her vomitus appeared bloody in nature. She presented herself to the hospital on the day of admission for further evaluation secondary to ongoing lower abdominal pain and blood tinged bowel movements. She has had no recurrence of emesis. Her last bowel movement was late March 07/ early . Hemoglobin on 03/07/2018 was 13.3 presently 12.6. White count 12.5. Platelet 260. INR 1.0. BUN 10. Creatinine 0.5. C. diff negative. Stool occult blood positive. Receiving intravenous antibiotics. No changes in weight or appetite. No sick contacts. No recent travels. No changes in medications. No changes in diet. No NSAIDs aspirin or antiplatelet medications. No alcohol. No history of EGD colonoscopy. CT abdomen and pelvis reported moderate wall thickening of the left colon from the splenic flexure to the proximal sigmoid. Mild to moderate ill-defined fluid and fat stranding along the colon with small amount of left infracolic fluid. No pneumoperitoneum. No abscess. Other details as summarized in the history and physical and dictated consultations and progress notes. Procedure: With the patient on her left lateral decubitus position and after informed consent and adequate sedation, I passed the Olympus-GIF 160 video upper endoscope through the cricopharyngeus down the esophagus. GE junction was around 36 cm from the incisors and there was a sliding hiatal hernia measuring around 2 cm. The esophagus did not show any obvious esophagitis or complicated reflux disease. The endoscope was then passed into the stomach which was insufflated with air and inspected in detail occluding the retroflex view in the cardia. There was some mottling and erythema and couple healing erosions in the antrum and immediate prepyloric area but there were no ulcers. No pyloric channel ulcers. Duodenal bulb, post bulbar area and descending duodenum appeared within normal limits. I obtained biopsies from the antrum then the endoscope was withdrawn and I proceeded with the colonoscopy. Perianal area did not show any fissures or fistulas. There were no masses felt on digital rectal examination. The Olympus CFQ 160L video colonoscope was then inserted in the rectum in the usual fashion and advanced to the cecum. There was occasional diverticular orifice seen in the sigmoid. There was a segment of colitis extending for around 20 cm involving the descending colon and the proximal sigmoid with edema, erythema and exudation. Proximal and distal to that segment the mucosa appeared healthy. There was no spontaneous bleeding or ulcerations. The segment is consistent with ischemic, infectious or self- limited colitis. Multiple biopsies were obtained. There were no polyps or tumors or other evidence of bleeding. I retroflexed the endoscope in the rectum before the endoscope was withdrawn. The patient tolerated the procedure well. Plan: The patient was reassured and I will discuss with her family. Will allow low-residue diet. Further plans based on her course and biopsy results.
[2018-03-11] MEDS: ACETAMINOPHEN TAB 325 MG TAB PO PRN (20:21)
[2018-03-11] MEDS: LUMIGAN BOTH EYES SCH (20:23)
[2018-03-11] MEDS: LORATADINE 10 MG TAB PO PRN (21:13)
[2018-03-11 23:36] VITALS: RESP 18
[2018-03-12] MEDS: SODIUM CHLORIDE 0.9% 1,000 ML IV SCH ×2 (03:47→12:29)
[2018-03-12 06:11] VITALS: BP 133/74; PULSE 71; TEMP 98.7
[2018-03-12] MEDS: metroNIDAZOLE-NS PMX 500 MG in SALINE 1 100ML.BAG IVPB SCH ×2 (06:25→13:49)
[2018-03-12] MEDS: ACETAMINOPHEN TAB 325 MG TAB PO PRN (07:43)
[2018-03-12] MEDS: PANTOPRAZOLE 40 MG/10 ML VIAL IVP SCH (07:43)
[2018-03-12] MEDS: SIMBRINZA BOTH EYES SCH (07:44)
[2018-03-12] MEDS: FRESHKOTE BOTH EYES SCH (07:44)
[2018-03-12 08:45] LABS: Basophils % (A) 0 %; Eosinophils # (A) 0.2 k/uL (0-0.7); Eosinophils % (A) 2 %; HCT 34.6 % (34.0-46.0); HGB 11.7 gm/dL (11.4-16.0); Lymphocytes # (A) 1.7 k/uL (1.0-4.8); Lymphocytes % (A) 20 %; MCH 31.3 pg (25.0-35.0); MCHC 33.8 g/dL (31.0-37.0); MCV 92.7 fL (80.0-100.0); Mean Platelet Volume 7.6; Monocytes # (A) 0.5 k/uL (0-1.0); Monocytes % (A) 7 %; Neutrophils # (A) 5.8 k/uL (1.3-7.7); Neutrophils % (A) 70 %; Platelet Count 301 k/uL (150-450); RBC 3.73 m/uL (3.80-5.40); WBC 8.3 k/uL (3.8-10.6)
[2018-03-12 09:06] LABS: Anion Gap 11 mmol/L; Blood Urea Nitrogen 5 mg/dL (7-17); Calcium 8.3 mg/dL (8.4-10.2); Carbon Dioxide 28 mmol/L (22-30); Chloride 104 mmol/L (98-107); Glucose 83 mg/dL (74-99); Magnesium 1.8 mg/dL (1.6-2.3); Sodium 143 mmol/L (137-145)
[2018-03-12] MEDS ORDERED: Potassium Replacement Protocol 1 EACH MISC MISCELLANE PRN (09:11)
--- NOTE | 2018-03-12 09:54 | P.PN ---
Subjective Progress Note Date: 03/12/18 Principal diagnosis: Rectal bleeding colitis No further bleeding. Status post EGD colonoscopy with findings of resolving segmental colitis consistent with ischemic or self-limited colitis, diverticulosis. No evidence of peptic ulcer disease. Mild headache. Tolerating diet. Feels better. Minimal abdominal discomfort. Hemoglobin 11.7. White count 8.3. Objective - Vital Signs Vital signs: Vital Signs Temp 98.7 F 03/12/18 05:50 Pulse 71 03/12/18 05:50 Resp 18 03/12/18 05:50 BP 133/74 03/12/18 05:50 Pulse Ox 95 03/12/18 05:50 Intake & Output 03/11/18 03/12/18 03/12/18 18:59 06:59 18:59 Intake Total 1950 150 Balance 1950 150 Weight 56.699 kg Intake: IV 1950 Levofloxacin 500Mg-D5w 100 Pmx 500 mg In Dextrose/ Water 1 100ml.bag @ 100 mls/hr IVPB Q24H BARB Rx#: [id number] Potassium Chloride 10 meq 200 In Water For Injection 1 100ml.bag @ 100 mls/hr IVPB Q1H BARB Rx#: [id number] Sodium Chloride 0.9% 1, 1000 000 ml @ 125 mls/hr IV . Q8H BARB Rx#:[id number] metroNIDAZOLE-NS PMX 500 100 mg In Saline 1 100ml.bag @ 100 mls/hr IVPB Q8H BARB Rx#:[id number] Oral 150 Other: Voiding Method Bedside Commode # Voids 3 2 # Bowel Movements 5 - Exam General appearance: The patient is alert, oriented, in no acute distress. HET: Head is normocephalic and atraumatic. Pupils are equal and reactive. Oropharynx is clear without lesions. Neck: Supple without lymphadenopathy. Trachea midline. Heart: S1 S2. Regular rate and rhythm. Lungs: No crackles or wheezes are heard. Abdomen: Soft, very mild tenderness bilateral lower abdomen, nondistended with bowel sounds. No peritoneal signs. No palpable organomegaly or masses. Extremities: Normal skin color and turgor. No cyanosis, rash, ulceration, clubbing, or edema. Radial and pedal pulses are 2/4 bilaterally. Neurological: No focal deficits. Strength and sensation are grossly intact. - Labs CBC & Chem 7: 03/12/18 07:31 03/12/18 07:31 Labs: Abnormal Lab Results - Last 24 Hours (Table) 03/11/18 03/11/18 03/12/18 Range/Units 08:41 08:41 07:31 RBC 3.73 L (3.80-5.40) m/uL Neutrophils # 7.8 H (1.3-7.7) k/uL Potassium 3.2 L (3.5-5.1) mmol/L BUN 3 L (7-17) mg/dL Glucose 103 H (74-99) mg/dL Calcium (8.4-10.2) mg/dL 03/12/18 Range/Units 07:31 RBC (3.80-5.40) m/uL Neutrophils # (1.3-7.7) k/uL Potassium 3.0 L* (3.5-5.1) mmol/L BUN 5 L (7-17) mg/dL Glucose (74-99) mg/dL Calcium 8.3 L (8.4-10.2) mg/dL Assessment and Plan (1) Colitis Narrative/Plan: Ischemic possible self limiting colitis status post EGD colonoscopy Current Visit: Yes Status: Acute Code(s): K52.9 - NONINFECTIVE GASTROENTERITIS AND COLITIS, UNSPECIFIED SNOMED Code(s): 32274377 (2) Hematemesis Narrative/Plan: Status post EGD no evidence of peptic ulcer disease. Current Visit: Yes Status: Acute Code(s): K92.0 - HEMATEMESIS SNOMED Code( s): 8253070 (3) Hematochezia Current Visit: Yes Status: Acute Code(s): K92.1 - MELENA SNOMED Code(s): 710945135 (4) GI bleeding Current Visit: Yes Status: Acute Code(s): K92.2 - GASTROINTESTINAL HEMORRHAGE, UNSPECIFIED SNOMED Code(s): 83340395 Plan: 1. Discharge per medicine. Return to office in 2-3 weeks. Low fiber diet 3-5 days and resume regular diet with fiber. Stool softeners as needed avoid constipation. May resume Excedrin as needed for migraines in 3-5 days as long as bowel movements are nonbloody abdominal pain resolved. Assessment and plan of care discussed with Dr. Bonds
[2018-03-12] MEDS: POTASSIUM CHLORIDE ER 20 MEQ TAB.ER PO SCH ×2 (10:07→10:53)
[2018-03-12] MEDS: LEVOFLOXACIN 500MG-D5W PMX 500 MG in DEXTROSE/WATER 1 100ML.BAG IVPB SCH (11:04)
--- NOTE | 2018-03-12 14:12 | P.DS ---
Providers Date of admission: 03/08/18 11:02 Expected date of discharge: 03/12/18 Attending physician: Taty Madison Primary care physician: Marielle Arredondo Hospital Course: Discharge diagnosis 1. Acute colitis involving the descending colon and proximal sigmoid. Possible infectious versus ischemic or self-limiting colitis. Status post EGD and colonoscopy. Results showing a sliding hiatal hernia, antral gastritis. Resolving segmental colitis involving descending colon and proximal sigmoid consistent with ischemic colitis or self-limiting colitis. No active bleeding noted on colonoscopy or EGD. Patient will continue Levaquin and Flagyl for 6 more days to complete a 10 day treatment. White count has normalized. Abdominal pain improved. No further blood in stools. 2. Acute GI bleed secondary to colitis 3. Hematemesis status post EGD showing antral gastritis. No active bleeding 4. Hypokalemia likely related to the GoLYTELY prep. Patient received potassium supplement prior to discharge. Potassium is 3.0. However, we'll continue a complicated were 20 mEq daily for 7 days. And have patient follow- up with PCP in 1 week for repeat level Hospital course This is a 67-year-old female with no significant past medical history who presented to the emergency room with abdominal discomfort and blood in her stool. Patient said that her problem originally started on Thursday where she was evaluated in the emergency room and was discharged home and subsequently her pain continues to get worse. She was initially having maroon colored stool and subsequently was more bright red blood in her stool. Patient said that she is also having abdominal pain that is diffuse mostly in the lower abdomen. She had one episode of vomiting with bright red blood noted as well. Patient presented to the emergency room and was found to be hemodynamically stable. Hemoglobin dropped by 1 g but remained within acceptable range. She is currently admitted to the hospital. Computed tomography scan of the abdomen showed left colitis. She is currently on IV antibiotics. Patient's rectal bleeding has resolved. As well as the hematemesis. Patient seen by GI service. Was found to have evidence of an acute colitis possibly ischemic or self-limiting colitis. Also concerns about possible infectious colitis. She was placed on Levaquin and Flagyl white count has improved. EGD and colonoscopy results as stated above. GI service recommending to follow a low fiber diet for at least 3-5 days. Also will add omeprazole for the antral gastritis. Patient is continue Levaquin and Flagyl for 6 more days. Patient is medically stable for discharge. Please refer to chart for any further details I performed an examination of the patient and discussed their management with the physician Globe Changer. I have reviewed the Physician Globe Changer's notes and agree with the documented findings and plan of care Patient Condition at Discharge: Stable Plan - Discharge Summary Discharge Rx Participant: Yes New Discharge Prescriptions: New Levofloxacin [Levaquin] 500 mg PO DAILY #6 tab metroNIDAZOLE [Flagyl] 500 mg PO TID #18 tab Potassium Chloride ER [K-Dur 20] 20 meq PO DAILY #7 tab Continue Bimatoprost [Lumigan .01% Ophth Soln] 1 drop BOTH EYES DAILY Brinzolamide/Brimonidine Tart [Simbrinza 1%-0.2% Eye Drops] 2 drops BOTH EYES HS Brinzolamide/Brimonidine Tart [Simbrinza 1%-0.2% Eye Drops] 1 drop BOTH EYES QAM Eye Lubricant Combination No.1 [Freshkote] 1 drop BOTH EYES TID Discontinued Ciprofloxacin HCl [Cipro] 500 mg PO Q12HR #20 tablet Discharge Medication List Bimatoprost [Lumigan .01% Ophth Soln] 1 drop BOTH EYES DAILY 03/08/18 [History] Brinzolamide/Brimonidine Tart [Simbrinza 1%-0.2% Eye Drops] 1 drop BOTH EYES QAM 03/08/18 [History] Brinzolamide/Brimonidine Tart [Simbrinza 1%-0.2% Eye Drops] 2 drops BOTH EYES HS 03/08/18 [History] Eye Lubricant Combination No.1 [Freshkote] 1 drop BOTH EYES TID 03/08/18 [ History] Levofloxacin [Levaquin] 500 mg PO DAILY #6 tab 03/12/18 [Rx] Potassium Chloride ER [K-Dur 20] 20 meq PO DAILY #7 tab 03/12/18 [Rx] metroNIDAZOLE [Flagyl] 500 mg PO TID #18 tab 03/12/18 [Rx] Follow up Appointment(s)/Referral(s): Sylvester Dumont MD [STAFF PHYSICIAN] - 03/30/18 4:45 pm [facility] Nurse, [NON-STAFF] - Marielle Arredondo MD [Primary Care Provider] - 1 Week Ambulatory/Diagnostic Orders: Basic Metabolic Panel [LAB.AMB] Time Frame: 1 Week, Location: Determined By Patient Patient Instructions/Handouts: Ischemic Colitis (GEN) Activity/Diet/Wound Care/Special Instructions: Low fiber diet 3-5 days and resume regular diet with fiber. Stool softeners daily as needed avoid constipation May resume Excedrin as needed for headaches in 3-5 days as long as abdominal pain is resolved and passing nonbloody bowel movements. Activity: as tolerated Discharge Disposition: HOME WITH HOME HEALTH SERVICES
== END 2018-03-12 14:35 | disposition home health service (06) | DRG 391 ==
LOC: EC 08:32 → 4MS4W 11:02
PROVIDERS: ADMIT Internal Medicine; ATTEND Internal Medicine
PROC: 0DBM8ZX Excision of Descending Colon, Via Natural or Artificial Opening Endoscopic, Diagnostic (ICD-10-PCS; principal; 2018-03-11 16:45)
PROC: 0DBN8ZX Excision of Sigmoid Colon, Via Natural or Artificial Opening Endoscopic, Diagnostic (ICD-10-PCS; principal; 2018-03-11 16:45)
PROC: 0DB78ZX Excision of Stomach, Pylorus, Via Natural or Artificial Opening Endoscopic, Diagnostic (ICD-10-PCS; 2018-03-11 16:45)
DX: A09 Infectious gastroenteritis and colitis, unspecified (principal); K55.031 Focal (segmental) acute (reversible) ischemia of large intestine; E87.6 Hypokalemia; H40.9 Unspecified glaucoma; K29.70 Gastritis, unspecified, without bleeding; K44.9 Diaphragmatic hernia without obstruction or gangrene; K57.30 Diverticulosis of large intestine without perforation or abscess without bleeding; E07.9 Disorder of thyroid, unspecified; Z79.890 Hormone replacement therapy; Z79.899 Other long term (current) drug therapy; Z98.42 Cataract extraction status, left eye; Z96.1 Presence of intraocular lens; Z82.3 Family history of stroke; Z82.49 Family history of ischemic heart disease and other diseases of the circulatory system
CPT/HCPCS: 36415; 43239; 45380; 74018; 74021; 74177; 80048; 80053; 81001; 82150; 82272; 83605; 83690; 83735; 85025; 85610; 85730; 87324; 88305; 96361; 96365; 96374; 96375; 99284; 99285

== ENCOUNTER → 2018-06-02 | Outpatient (CLI) | payer MEDICARE, OTHER ==
--- NOTE | 2018-06-29 13:44 | MM ---
Reason for exam: screening (asymptomatic). Last mammogram was performed 6 years and 4 months ago. History: Patient is postmenopausal. Took estrogen for 1 year beginning at age 48. Physical Findings: A clinical breast exam by your physician is recommended on an annual basis and results should be correlated with mammographic findings. MG 3D Screening Mammo W/Cad Bilateral CC and MLO view(s) were taken. Prior study comparison: January 29, 2012, mammogram, performed at [facility]. January 07, 2012, mammogram, performed at [facility]. The breast tissue is heterogeneously dense. This may lower the sensitivity of mammography. There are benign appearing round calcifications bilaterally. ASSESSMENT: Benign, BI-RAD 2 RECOMMENDATION: Routine screening mammogram of both breasts in 1 year.
== END | disposition home or self-care (01) ==
LOC: RADMAMWWP 10:36
PROVIDERS: ATTEND Family Medicine
DX: Z12.31 Encounter for screening mammogram for malignant neoplasm of breast (principal)
CPT/HCPCS: 77063; 77067

== ENCOUNTER → 2019-06-29 | Outpatient (CLI) | payer MEDICARE, OTHER ==
--- NOTE | 2019-07-01 07:30 | MM ---
Reason for exam: screening (asymptomatic). Last mammogram was performed 1 year and 1 month ago. History: Patient is postmenopausal. Took estrogen for 1 year beginning at age 48. Physical Findings: A clinical breast exam by your physician is recommended on an annual basis and results should be correlated with mammographic findings. MG 3D Screening Mammo W/Cad Bilateral CC and MLO view(s) were taken. Prior study comparison: June 02, 2018, bilateral MG 3d screening mammo w/cad. January 29, 2012, mammogram, performed at [facility]. The breast tissue is heterogeneously dense. This may lower the sensitivity of mammography. Focal asymmetry right MLO view. This finding is changed when compared with previous exams. ASSESSMENT: Incomplete: need additional imaging evaluation, BI-RAD 0 RECOMMENDATION: Special view mammogram of the right breast. If lesion persists on supplemental views, image directed ultrasound is recommended. [facility] will attempt to contact patient to return for supplemental views and ultrasound if indicated.
--- NOTE | 2019-07-04 12:22 | BD ---
EXAMINATION TYPE: Axial Bone Density DATE OF EXAM: 06/29/2019 COMPARISON: NONE CLINICAL HISTORY: M 84.8 Height: 65.2 IN Weight: 132 LBS RISK FACTORS HISTORY OF: Active: YES Diet low in dairy products/other sources of calcium: YES Postmenopausal woman: AGE 48 Take estrogen and/or progesterone medications: NOT NOW How long: TOOK FROM AGE [age] MEDICATIONS: Additional Medications: LOW DOSE ASPIRIN, VIT D, EXAM MEASUREMENTS: Bone mineral densitometry was performed using the [employer] System. Bone mineral density as measured about the Lumbar spine is: ----- L1-L4(G/cm2): 1.020 T Score Values are as follows: ----- L2: -1.7 ----- L3: -1.3 ----- L4: -0.7 ----- L1-L4: -1.3 Bone mineral density BASELINE Bone mineral density about the R hip (g/cm2): 0.754 Bone mineral density about the L hip (g/cm2): 0.711 T Score values are as follows: -----R Neck: -2.0 -----L Neck: -2.4 -----R Total: -2.1 -----L Total: -2.1 Bone mineral density BASELINE IMPRESSION: Osteopenia (T Score between -2.5 and -1). There is slightly increased risk of fracture and the patient may be considered for treatment. Re-Screen 2-5 years. NOTE: T-SCORE=SD OF THE YOUNG ADULT MEAN.
== END | disposition home or self-care (01) ==
LOC: RADMAMWWP 14:35
PROVIDERS: ATTEND Family Medicine
DX: Z12.31 Encounter for screening mammogram for malignant neoplasm of breast (principal); M85.851 Other specified disorders of bone density and structure, right thigh; M85.852 Other specified disorders of bone density and structure, left thigh; M85.88 Other specified disorders of bone density and structure, other site
CPT/HCPCS: 77063; 77067; 77080

== ENCOUNTER → 2019-07-14 | Outpatient (CLI) | payer MEDICARE, OTHER ==
--- NOTE | 2019-07-14 10:45 | MM ---
Reason for exam: additional evaluation requested from abnormal screening. Last mammogram was performed less than 1 month ago. History: Patient is postmenopausal. Took estrogen for 1 year beginning at age 48. Physical Findings: Nurse did not find any significant physical abnormalities on exam. MG 3D Work Up W/Cad RT LM and spot compression MLO view(s) were taken of the right breast. Prior study comparison: June 29, 2019, bilateral MG 3d screening mammo w/cad. June 02, 2018, bilateral MG 3d screening mammo w/cad. The breast tissue is heterogeneously dense. This may lower the sensitivity of mammography. Benign appearing calcifications in the right breast. The previously seen abnormality resolves on additional views and appears as fibroglandular tissue compatible with summation. These results were verbally communicated with the patient and result sheet given to the patient on 07/14/19. ASSESSMENT: Benign, BI-RAD 2 RECOMMENDATION: Return to routine screening mammogram schedule for both breasts.
== END | disposition home or self-care (01) ==
LOC: RADMAMWWP 08:47
PROVIDERS: ATTEND Family Medicine
DX: R92.8 Other abnormal and inconclusive findings on diagnostic imaging of breast (principal)
CPT/HCPCS: 77065; G0279; 77061

== ENCOUNTER 2021-12-15 17:53 | Emergency (ER) | payer MEDICARE, OTHER ==
[2021-12-15 18:10] VITALS: TEMP 98.9
[2021-12-15] MEDS ORDERED: SODIUM CHLORIDE 0.9% 1,000 ML IV STA ×2 (18:31→18:34)
[2021-12-15] MEDS ORDERED: MECLIZINE 12.5 MG TAB PO STA (18:31)
[2021-12-15 19:00] LABS: Basophils % (A) 1 %; Eosinophils # (A) 0.1 k/uL (0-0.7); Eosinophils % (A) 1 %; HCT 41.9 % (34.0-46.0); HGB 13.9 gm/dL (11.4-16.0); Lymphocytes # (A) 0.9 k/uL (1.0-4.8); Lymphocytes % (A) 13 %; MCH 33.3 pg (25.0-35.0); MCHC 33.1 g/dL (31.0-37.0); MCV 100.5 fL (80.0-100.0); Mean Platelet Volume 7.9; Monocytes # (A) 0.3 k/uL (0-1.0); Monocytes % (A) 4 %; Neutrophils # (A) 5.5 k/uL (1.3-7.7); Neutrophils % (A) 79 %; Platelet Count 249 k/uL (150-450); RBC 4.17 m/uL (3.80-5.40); RDW 12.9 % (11.5-15.5)
--- NOTE | 2021-12-15 19:01 | XR ---
EXAMINATION TYPE: XR chest 2V DATE OF EXAM: 12/15/2021 COMPARISON: NONE HISTORY: Dizziness TECHNIQUE: 2 views FINDINGS: Heart and mediastinum are normal. Lungs are clear. Diaphragm is normal. Bony thorax is norm al. IMPRESSION: Normal chest.
[2021-12-15 19:05] LABS: INR 0.9 (<1.2); Prothrombin Time 10.3 sec (9.0-12.0)
[2021-12-15 19:13] VITALS: RESP 18
[2021-12-15 19:16] LABS: ALT 14 U/L (4-34); AST 26 U/L (14-36); African American GFR (CKD) >90 (>60 ml/min/1.73 sqM); Albumin 4.2 g/dL (3.5-5.0); Alkaline Phosphatase 71 U/L (38-126); Anion Gap 10 mmol/L; Blood Urea Nitrogen 14 mg/dL (7-17); Calcium 9.2 mg/dL (8.4-10.2); Carbon Dioxide 21 mmol/L (22-30); Chloride 105 mmol/L (98-107); Glucose 118 mg/dL (74-99); Non-African American GFR(CKD) >90 (>60 ml/min/1.73 sqM); Potassium 4.3 mmol/L (3.5-5.1); Sodium 136 mmol/L (137-145); Total Bilirubin 0.6 mg/dL (0.2-1.3); Total Protein 6.8 g/dL (6.3-8.2)
[2021-12-15 20:30] LABS: Appearance,Urine Clear (Clear); Bilirubin,Urine Negative (Negative); Blood,Urine Negative (Negative); Color,Urine Light Yellow; Glucose,Urine (UA) Negative (Negative); Ketones,Urine Negative (Negative); Leukocyte Esterase,Urine Negative (Negative); Nitrite,Urine Negative (Negative); PH, Urine 7.5 (5.0-8.0); Protein,Urine Negative (Negative); Specific Gravity,Urine 1.008 (1.001-1.035); Urobilinogen,Urine <2.0 mg/dL (<2.0)
--- NOTE | 2021-12-15 21:27 | ED ---
General Adult HPI - General Chief complaint: Dizziness Stated complaint: DIZZINESS Time Seen by Provider: 12/15/21 18:09 Source: patient, EMS, RN notes reviewed, old records reviewed Mode of arrival: EMS Limitations: no limitations - History of Present Illness Initial comments: Patient is a 71-year-old female with past medical history remarkable for prior vertigo, glaucoma who presents emergency Department complaining of a lightheadedness/dizziness sensation. States this is not vertigo symptoms. States that when she was standing up or sitting up, she was experiencing sudden onset lightheadedness. She is been feeling "unwell" today. Denies any cough, fevers, chills, nausea, vomiting, abdominal pain. His no chest pain or shortness breath. Denies any urinary complaints. His no other acute complaints at this time other than this tenderness. Has been told she was dehydrated, and states she has not been drinking water is much her she probably should. Was vaccinated for COVID-19. No other symptoms. Presents over concern for the lightheadedness sensation. Denies any other weakness, sensory deficits. Symptoms primarily are triggered by sitting up or standing up. - Related Data Home Medications Medication Instructions Recorded Confirmed Bimatoprost [Lumigan .01% Ophth 1 drop BOTH EYES DAILY 03/08/18 03/08/18 Soln] Brinzolamide/Brimonidine Tart 1 drop BOTH EYES QAM 03/08/18 03/08/18 [Simbrinza 1%-0.2% Eye Drops] Brinzolamide/Brimonidine Tart 2 drops BOTH EYES HS 03/08/18 03/08/18 [Simbrinza 1%-0.2% Eye Drops] Polyvinyl Alcohol/Povidone 1 drop BOTH EYES TID 03/08/18 03/08/18 [Freshkote Eye Drop] Previous Rx's Medication Instructions Recorded Levofloxacin [Levaquin] 500 mg PO DAILY #6 tab 03/12/18 Omeprazole 20 mg PO DAILY #30 tablet. 03/12/18 Potassium Chloride ER [K-Dur 20] 20 meq PO DAILY #7 tab 03/12/18 metroNIDAZOLE [Flagyl] 500 mg PO TID #18 tab 03/12/18 Allergies Allergy/AdvReac Type Severity Reaction Status Date / Time No Known Allergies Allergy Verified 02/06/22 18:10 Review of Systems ROS Statement: Those systems with pertinent positive or pertinent negative responses have been documented in the HPI. Review of Systems: CONST: Denies fever EYES: Denies blurry vision ENT: Denies nasal congestion C/V: Denies Chest pain RESP: Denies shortness of breath GI: Denies abdominal pain : Denies dysuria SKIN: Denies rash. MSK: Denies joint pain. NEURO: Denies headache ROS Other: All systems not noted in ROS Statement are negative. Past Medical History Past Medical History: Eye Disorder Additional Past Medical History / Comment(s): Bilateral glaucoma, past vertigo, headaches occasionally. History of Any Multi-Drug Resistant Organisms: None Reported Past Surgical History: No Surgical Hx Reported Additional Past Surgical History / Comment(s): L eye cataract removed with lens implants. Additional Past Anesthesia/Blood Transfusion Reaction / Comment(s): Pt has never received general anesthesia. Past Psychological History: No Psychological Hx Reported Smoking Status: Never smoker Past Alcohol Use History: Rare Past Drug Use History: None Reported - Past Family History Mother Family Medical History: CVA/TIA Additional Family Medical History / Comment(s): Mother of a CVA at the age of 76yrs Father Family Medical History: Myocardial Infarction (HI) Additional Family Medical History / Comment(s): Father of a HI at the age of 72 yrs. General Exam - General Exam Comments Initial Comments: General: Appears in no acute distress. HEAD: Normal with no signs of head trauma. EYES: PERRLA, EOMI, conjunctiva normal, no discharge. Pupils are 3 mm and equal bilaterally. ENT: Hearing grossly intact, normal oropharynx. Mildly dry mucus membranes. RESPIRATORY: Clear breath sounds bilaterally. No wheezes, rales, or rhonchi. C/V: Regular rate and rhythm. S1 and S2 auscultated, no edema, peripheral pulses 2+ and intact throughout ABD: Abd is soft, nontender, nondistended EXT: Normal range of motion, no obvious deformity SKIN: No rashes or lesions observed on exposed skin. NEURO: Alert and oriented x 4. Cranial nerves II-XII intact. No focal sensory or strength deficits. Cerebellar function is intact as evident by normal finger to nose and heel to bowie testing. Patient is able to ambulate. GCS is 15. NIH is 0. Limitations: no limitations Course Vital Signs 12/15/21 12/15/21 12/15/21 18:08 19:10 22:00 Temperature 98.9 F Pulse Rate 63 72 66 Respiratory 16 18 18 Rate Blood Pressure 162/94 147/97 141/99 O2 Sat by Pulse 97 97 95 Oximetry Medical Decision Making - Medical Decision Making Based on the patient's presentation and physical exam, I'm concerned for possible cardiopulmonary versus infectious etiology for her current symptoms. Currently she is complaining of some mild lightheadedness. I do believe she is likely dehydrated as well. She'll be given fluid boluses as well as a cardiac workup. We'll check her for COVID-19 as well. She was in agreement this plan. She also be given meclizine in the case that this is vertigo, she does have a history of of. However she states this is different than vertigo for her. EKG showed no signs of acute ischemia. Chest x-ray showed no acute cardio pulmonary process. Covid, flu are negative. Urinalysis is unremarkable. Labs are otherwise unremarkable. Lactate is within normal limits. On reevaluation come patient states she feels improved. She ambulates without difficulty. Lightheadedness feeling is gone. I discussed that I believe it is safer to get to go home and she was in agreement this plan. Recommended follow- up with PCP as needed. We discussed proper fluid hydration. I instructed the patient to follow up with their PCP in the next 3 days . I explained that the patient should return to the emergency department if they experience any worsening symptoms. Strict return precautions were discussed with the patient. The patient expressed understanding of these instructions. I answered all questions that the patient had. The patient was discharged home in good condition with their prescriptions and follow up information. - Lab Data Result diagrams: 12/15/21 18:40 12/15/21 18:40 Lab Results 12/15/21 12/15/21 12/15/21 Range/Units 18:40 18:40 18:40 WBC 7.0 (3.8-10.6) k/uL RBC 4.17 (3.80-5.40) m/uL Hgb 13.9 (11.4-16.0) gm/dL Hct 41.9 (34.0-46.0) % MCV 100.5 H (80.0-100.0) fL MCH 33.3 (25.0-35.0) pg MCHC 33.1 (31.0-37.0) g/dL RDW 12.9 (11.5-15.5) % Plt Count 249 (150-450) k/uL MPV 7.9 Neutrophils % 79 % Lymphocytes % 13 % Monocytes % 4 % Eosinophils % 1 % Basophils % 1 % Neutrophils # 5.5 (1.3-7.7) k/uL Lymphocytes # 0.9 L (1.0-4.8) k/uL Monocytes # 0.3 (0-1.0) k/uL Eosinophils # 0.1 (0-0.7) k/uL Basophils # 0.0 (0-0.2) k/uL PT 10.3 (9.0-12.0) sec INR 0.9 (<1.2) Sodium 136 L (137-145) mmol/L Potassium 4.3 (3.5-5.1) mmol/L Chloride 105 (98-107) mmol/L Carbon Dioxide 21 L (22-30) mmol/L Anion Gap 10 mmol/L BUN 14 (7-17) mg/dL Creatinine 0.53 (0.52-1.04) mg/dL Est GFR (CKD-EPI)AfAm >90 (>60 ml/min/1.73 sqM) Est GFR (CKD-EPI)NonAf >90 (>60 ml/min/1.73 sqM) Glucose 118 H (74-99) mg/dL Plasma Lactic Acid Edu (0.7-2.0) mmol/L Calcium 9.2 (8.4-10.2) mg/dL Total Bilirubin 0.6 (0.2-1.3) mg/dL AST 26 (14-36) U/L ALT 14 (4-34) U/L Alkaline Phosphatase 71 (38-126) U/L Troponin I (0.000-0.034) ng/mL Total Protein 6.8 (6.3-8.2) g/dL Albumin 4.2 (3.5-5.0) g/dL Urine Color Urine Appearance (Clear) Urine pH (5.0-8.0) Ur Specific [place] (1.001-1.035) Urine Protein (Negative) Urine Glucose (UA) (Negative) Urine Ketones (Negative) Urine Blood (Negative) Urine Nitrite (Negative) Urine Bilirubin (Negative) Urine Urobilinogen (<2.0) mg/dL Ur Leukocyte Esterase (Negative) Coronavirus (PCR) (Not Detectd) Influenza Type A RNA (Not Detectd) Influenza Type B (PCR) (Not Detectd) 12/15/21 12/15/21 12/15/21 Range/Units 18:40 18:40 18:44 WBC (3.8-10.6) k/uL RBC (3.80-5.40) m/uL Hgb (11.4-16.0) gm/dL Hct (34.0-46.0) % MCV (80.0-100.0) fL MCH (25.0-35.0) pg MCHC (31.0-37.0) g/dL RDW (11.5-15.5) % Plt Count (150-450) k/uL MPV Neutrophils % % Lymphocytes % % Monocytes % % Eosinophils % % Basophils % % Neutrophils # (1.3-7.7) k/uL Lymphocytes # (1.0-4.8) k/uL Monocytes # (0-1.0) k/uL Eosinophils # (0-0.7) k/uL Basophils # (0-0.2) k/uL PT (9.0-12.0) sec INR (<1.2) Sodium (137-145) mmol/L Potassium (3.5-5.1) mmol/L Chloride (98-107) mmol/L Carbon Dioxide (22-30) mmol/L Anion Gap mmol/L BUN (7-17) mg/dL Creatinine (0.52-1.04) mg/dL Est GFR (CKD-EPI)AfAm (>60 ml/min/1.73 sqM) Est GFR (CKD-EPI)NonAf (>60 ml/min/1.73 sqM) Glucose (74-99) mg/dL Plasma Lactic Acid Edu 1.5 (0.7-2.0) mmol/L Calcium (8.4-10.2) mg/dL Total Bilirubin (0.2-1.3) mg/dL AST (14-36) U/L ALT (4-34) U/L Alkaline Phosphatase (38-126) U/L Troponin I <0.012 (0.000-0.034) ng/mL Total Protein (6.3-8.2) g/dL Albumin (3.5-5.0) g/dL Urine Color Urine Appearance (Clear) Urine pH (5.0-8.0) Ur Specific [place] (1.001-1.035) Urine Protein (Negative) Urine Glucose (UA) (Negative) Urine Ketones (Negative) Urine Blood (Negative) Urine Nitrite (Negative) Urine Bilirubin (Negative) Urine Urobilinogen (<2.0) mg/dL Ur Leukocyte Esterase (Negative) Coronavirus (PCR) (Not Detectd) Influenza Type A RNA Not Detected (Not Detectd) Influenza Type B (PCR) Not Detected (Not Detectd) 12/15/21 12/15/21 Range/Units 18:44 20:17 WBC (3.8-10.6) k/uL RBC (3.80-5.40) m/uL Hgb (11.4-16.0) gm/dL Hct (34.0-46.0) % MCV (80.0-100.0) fL MCH (25.0-35.0) pg MCHC (31.0-37.0) g/dL RDW (11.5-15.5) % Plt Count (150-450) k/uL MPV Neutrophils % % Lymphocytes % % Monocytes % % Eosinophils % % Basophils % % Neutrophils # (1.3-7.7) k/uL Lymphocytes # (1.0-4.8) k/uL Monocytes # (0-1.0) k/uL Eosinophils # (0-0.7) k/uL Basophils # (0-0.2) k/uL PT (9.0-12.0) sec INR (<1.2) Sodium (137-145) mmol/L Potassium (3.5-5.1) mmol/L Chloride (98-107) mmol/L Carbon Dioxide (22-30) mmol/L Anion Gap mmol/L BUN (7-17) mg/dL Creatinine (0.52-1.04) mg/dL Est GFR (CKD-EPI)AfAm (>60 ml/min/1.73 sqM) Est GFR (CKD-EPI)NonAf (>60 ml/min/1.73 sqM) Glucose (74-99) mg/dL Plasma Lactic Acid Edu (0.7-2.0) mmol/L Calcium (8.4-10.2) mg/dL Total Bilirubin (0.2-1.3) mg/dL AST (14-36) U/L ALT (4-34) U/L Alkaline Phosphatase (38-126) U/L Troponin I (0.000-0.034) ng/mL Total Protein (6.3-8.2) g/dL Albumin (3.5-5.0) g/dL Urine Color Light Yellow Urine Appearance Clear (Clear) Urine pH 7.5 (5.0-8.0) Ur Specific [place] 1.008 (1.001-1.035) Urine Protein Negative (Negative) Urine Glucose (UA) Negative (Negative) Urine Ketones Negative (Negative) Urine Blood Negative (Negative) Urine Nitrite Negative (Negative) Urine Bilirubin Negative (Negative) Urine Urobilinogen <2.0 (<2.0) mg/dL Ur Leukocyte Esterase Negative (Negative) Coronavirus (PCR) Not Detected (Not Detectd) Influenza Type A RNA (Not Detectd) Influenza Type B (PCR) (Not Detectd) - EKG Data -: EKG Interpreted by Me EKG Comments: 12-lead Electrocardiogram Interpretation Note EKG was reviewed and interpreted by myself. 12-lead ECG performed at 1811 is interpreted by me as revealing normal sinus rhythm at a rate of 63 beats per minute. [place] is normal, VT interval is 160 ms, QRS duration is 82 ms, QTc is 431 ms.. There were no ST or T wave abnormalities to suggest myocardial ische marjan or injury. R wave progression across the precordium was satisfactory. By my interpretation this EKG is non-diagnostic for acute ischemia. Disposition Clinical Impression: Dehydration, Light-headed feeling Disposition: HOME SELF-CARE Condition: Good Instructions (If sedation given, give patient instructions): Dehydration (ED) Is patient prescribed a controlled substance at d/c from ED?: No Referrals: None,Stated [Primary Care Provider] - 1-2 days Cristina Morrow MD [REFERRING] - 1-2 days
[2021-12-15 22:02] VITALS: BP 141/99; PULSE 66
== END 2021-12-15 22:02 | disposition home or self-care (01) ==
LOC: EC 17:53
DX: R42 Dizziness and giddiness (principal); E86.0 Dehydration; Z20.822 Contact with and (suspected) exposure to COVID-19
CPT/HCPCS: 36415; 71046; 80053; 81003; 83605; 84484; 85025; 85610; 87502; 87635; 93005; 96360; 99284

== ENCOUNTER → 2022-06-19 | Outpatient (CLI) | payer MEDICARE, OTHER ==
--- NOTE | 2022-06-19 15:09 | XR ---
EXAMINATION TYPE: XR Hip Bilateral Complete DATE OF EXAM: 06/19/2022 2:34 PM INDICATION: Patient age:Female; 71 years old; Reason for study: M25.551 Pain in right hip M25.552 M54.5; COMPARISON: None. TECHNIQUE: Bilateral hips were examined in the frontal and lateral projections and a AP pelvis. FINDINGS: Right: There is joint space narrowing with osteophyte formation. The osseous structures are intact. N o dislocation or significant soft tissue swelling. Left: There is joint space narrowing with osteophyte formation. The osseous structures are intact. No dislocation or significant soft tissue swelling. IMPRESSION: 1. Mild bilateral hip osteoporosis. 2. No evidence of fracture.
--- NOTE | 2022-06-19 15:11 | XR ---
EXAMINATION TYPE: XR lumbosacral spine min 4V DATE OF EXAM: 06/19/2022 2:34 PM INDICATION: Patient age:Female; 71 years old; Reason for study: M25.551 Pain in right hip M25.552 M54.5; [facility]. COMPARISON: None TECHNIQUE: Frontal, lateral and coned in L5-S1 lateral views of the spine. FINDINGS: Multilevel osteophyte formation on the anterior and lateral aspect of the vertebral bodies. There is multilevel facet joint arthropathy. Vertebral body height is grossly maintained. No evidenc e of any acute osseous pathology. There is straightening of the spine IMPRESSION: 1. No acute process. 2. Mild to moderate multilevel disc degeneration.
== END | disposition home or self-care (01) ==
LOC: RADXRMAIN 14:08
PROVIDERS: ATTEND Nurse Practitioner Family
DX: M51.26 Other intervertebral disc displacement, lumbar region (principal); M85.89 Other specified disorders of bone density and structure, multiple sites
CPT/HCPCS: 72110; 73521

== ENCOUNTER → 2022-07-08 | Outpatient (CLI) | payer MEDICARE, OTHER ==
--- NOTE | 2022-07-08 14:18 | BD ---
EXAMINATION TYPE: Axial Bone Density DATE OF EXAM: 07/08/2022 COMPARISON: 06.29.2019 STUDY UNAVAILABLE...NEW SCAN CLINICAL HISTORY: 71 years year old Female. ICD-10 CODE: Z78.0 asymptmoatic menopausal state Height: 65 Weight: 128 FRAX RISK QUESTIONS: Glucocorticoids (More than 3mos): YES (Ex: prednisone, prednisolone, methylprednisolone, dexamethasone, and hydrocortisone). RISK FACTORS HISTORY OF: Diet low in dairy products/other sources of calcium: YES Postmenopausal woman: AT 5O Take estrogen and/or progesterone medications: IN THE PAST...NONE NOW Hyperparathyroidism: NO Adrenal Insufficiency: NO MEDICATIONS: Prednisone or other steroids: YES, FOR PAIN ON AND OFF ALL THE TIME, BELLS PALSY Additional Medications: ASPIRIN, VIT D, Additional History: HX OF BELLS PALSY, BACK PAIN, OSTEOARTHRITIS, EXAM MEASUREMENTS: Bone mineral densitometry was performed using the [employer] System. Bone mineral density as measured about the Lumbar spine is: ----- L1-L4(G/cm2): 0.984 T Score Values are as follows: ----- L1: -2.4 ----- L2: -2.5 ----- L3: -1.5 ----- L4: -0.7 ----- L1-L4: -1.6 Bone mineral density NEW SCAN FOR THIS PATIENT Bone mineral density about the R hip (g/cm2): 0.725 Bone mineral density about the L hip (g/cm2): 0.691 T Score values are as follows: -----R Neck: -2.4 -----L Neck: -2.6 -----R Total: -2.2 -----L Total: -2.5 Bone mineral density NEW SCAN FOR THIS PATIENT FRAX%s: The graph provided illustrates a 24.3% chance for a major osteoporotic fx and a 9.3% chance f or the hips probability for fx in 10 years time. IMPRESSION: Osteopenia (T Score between -2.5 and -1). There is slightly increased risk of fracture and the patient may be considered for treatment. Re-Screen 2-5 years. NOTE: T-SCORE=SD OF THE YOUNG ADULT MEAN.
== END | disposition home or self-care (01) ==
LOC: RADBDWWP 13:07
PROVIDERS: ATTEND Family Medicine
DX: M81.0 Age-related osteoporosis without current pathological fracture (principal); Z78.0 Asymptomatic menopausal state
CPT/HCPCS: 77080

== ENCOUNTER → 2024-08-08 | Outpatient (CLI) | payer MEDICARE, OTHER ==
--- NOTE | 2024-08-08 15:09 | BD ---
EXAMINATION TYPE: Axial Bone Density DATE OF EXAM: 08/08/2024 CLINICAL HISTORY: 74 years old Female. ICD-10 CODE: Z78.0 ASYMP CASTRO STATE Height: 65in Weight: 126lb FRAX RISK QUESTIONS: Secondary Osteoporosis: RISK FACTORS HISTORY OF: MEDICATIONS: EXAM MEASUREMENTS: Bone mineral densitometry was performed using the [employer] System. Bone mineral density as measured about the Lumbar spine is: ----- L1-L4(G/cm2): 1.000 T Score Values are as follows: ----- L1: -2.3 ----- L2: -2.0 ----- L3: -1.2 ----- L4: -0.8 ----- L1-L4: -1.5 Z Score Values are as follows: ----- L1: -0.3 ----- L2: 0.0 ----- L3: 0.9 ----- L4: 1.2 ----- L1-L4: 0.5 Bone mineral density has: Increased 1.6% since study of: 07-08-22 Bone mineral density about the R hip (g/cm2): 0.736 Bone mineral density about the L hip (g/cm2): 0.713 T Score values are as follows: -----R Neck: -2.1 -----L Neck: -2.3 -----R Total: -2.2 -----L Total: -2.3 Z Score values are as follows: -----R Neck: 0.1 -----L Neck: -0.2 -----R Total: -0.2 -----L Total: -0.4 Bone mineral density has: Increased 2.4% since study of: 07-08-22 FRAX%s: The graph provided illustrates a 14.3% chance for a major osteoporotic fx and a 4.6% chance f or the hips probability for fx in 10 years time. IMPRESSION: Osteopenia (T Score between -2.5 and -1). There is slightly increased risk of fracture and the patient may be considered for treatment. Re-Screen 2-5 years. NOTE: T-SCORE=SD OF THE YOUNG ADULT MEAN. [facility], , 08/08/2024 3:07 PM
== END | disposition home or self-care (01) ==
LOC: RADBDWWP 13:06
PROVIDERS: ATTEND Family Medicine
CPT/HCPCS: 77080